=== PATIENT | male | born 1945 | race Caucasian/White ===

== ENCOUNTER 2016-04-12 16:11 | Emergency (ER) | payer MEDICARE, BC ==
--- NOTE | 2016-04-12 16:58 | EKG REPORT ---
SEVERITY:- BORDERLINE ECG - SINUS RHYTHM : Confirmed by: Jolly Chaudhry MD 12-Apr-2016 16:58:09
--- NOTE | 2016-04-12 16:59 | ER Document Report ---
ED Medical Screen (RME) - General Stated Complaint: CHEST PAIN Notes: this afternoon, sudden onset chest pain with diaphoresis. gave 325 mg asa, 2 SL nitro chest pain substernal pressure lasyting 15-20 minutes, resolved with the SL nitro patient has a h/o CAD which resulted in CABG x2, no stents. Last stress test/cath approx 3 years ago PMH: DM, HTN, HLD, former smoker I have greeted and performed a rapid initial assessment of this patient. A comprehensive ED assessment and evaluation of the patient, analysis of test results and completion of the medical decision making process will be conducted by additional ED providers. TRAVEL OUTSIDE OF THE [place] IN LAST 30 DAYS: No - Related Data Allergies/Adverse Reactions: No Known Allergies Allergy (Verified 04/12/16 16:56) Past Medical History - Past Medical History Cardiac Medical History: Reports: Hx Coronary Artery Disease, Hx Hypercholesterolemia, Hx Hypertension Denies: Hx Heart Attack Pulmonary Medical History: Reports: Hx Asthma, Hx COPD, Hx Pneumonia - BABY. Denies: Hx Bronchitis Neurological Medical History: Denies: Hx Cerebrovascular Accident, Hx Seizures Endocrine Medical History: Reports: Hx Diabetes Mellitus Type 2 GI Medical History: Reports: Hx Hiatal Hernia. Denies: Hx Hepatitis, Hx Ulcer Musculoskeltal Medical History: Reports Hx Arthritis Infectious Medical History: Denies: Hx Hepatitis Past Surgical History: Reports: Hx Cardiac Surgery, Hx Cholecystectomy. Denies : Hx Open Heart Surgery, Hx Pacemaker - Immunizations Hx Diphtheria, Pertussis, Tetanus Vaccination: Yes - UNSURE IN LAST 5 YEARS. Physical Exam - Vital signs Vitals: Temp Pulse Resp BP Pulse Ox 97.8 F 57 L 20 137/59 H 100 04/12/16 16:04/12/16 16:04/12/16 16:04/12/16 16:04/12/16 16:27 Course - Vital Signs Vital signs: Temp Pulse Resp BP Pulse Ox 97.8 F 57 L 20 137/59 H 100 04/12/16 16:27 04/12/16 16:27 04/12/16 16:27 04/12/16 16:27 04/12/16 16:27
[2016-04-12 17:32] LABS: ABSOLUTE EOSINOPHILS # (AUTO) 0.1 10^3/uL (0.0-0.6); ABSOLUTE LYMPHOCYTES (AUTO) 1.2 10^3/uL (0.5-4.7); ABSOLUTE MONOCYTES (AUTO) 0.9 10^3/uL (0.1-1.4); ABSOLUTE NEUT (AUTO) 4.9 10^3/uL (1.7-8.2); BASOPHILS % (AUTO) 0.5 % (0-2); HEMATOCRIT 38.5 % (37.9-51.0); HEMOGLOBIN 13.1 g/dL (13.5-17.0); HGB HCT DIFFERENCE 0.8; LYMPHOCYTES % (AUTO) 17.1 % (13-45); MEAN CORPUSCULAR HEMOGLOBIN 28.7 pg (27.0-33.4); MEAN CORPUSCULAR HGB CONC 34.1 g/dL (32.0-36.0); MEAN CORPUSCULAR VOLUME 84 fl (80-97); RED BLOOD COUNT 4.57 10^6/uL (4.35-5.55); RED CELL DISTRIBUTION WIDTH 15.4 % (11.5-14.0); SEGMENTED NEUTROPHILS % (AUTO) 68.4 % (42-78); WHITE BLOOD COUNT 7.1 10^3/uL (4.0-10.5)
[2016-04-12 17:49] LABS: ALANINE AMINOTRANSFERASE 41 U/L (21-72); ALBUMIN 4.4 g/dL (3.5-5.0); ALKALINE PHOSPHATASE 68 U/L (38-126); ANION GAP 11 (5-19); ASPARTATE AMINO TRANSFERASE 31 U/L (17-59); BILIRUBIN,TOTAL 0.7 mg/dL (0.2-1.3); BLOOD UREA NITROGEN 20 mg/dL (7-20); CALCIUM 9.7 mg/dL (8.4-10.2); CARBON DIOXIDE 26 mmol/L (22-30); CHLORIDE 90 mmol/L (98-107); CREATINE KINASE 205 U/L (55-170); CREATININE RESULT 0.87 mg/dL (0.52-1.25); GLUCOSE 95 mg/dL (75-110); POTASSIUM 4.9 mmol/L (3.6-5.0); SODIUM 127.2 mmol/L (137-145); TOTAL PROTEIN 6.7 g/dL (6.3-8.2)
[2016-04-12 18:01] LABS: CREATINE KINASE MB 3.53 ng/mL (<4.55); TROPONIN I < 0.012 ng/mL
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
[2016-04-12 19:50] VITALS: BP 166/89
== END 2016-04-12 21:42 | disposition home or self-care (01) ==
LOC: ER 16:11
DX: R07.89 Other chest pain (principal); E87.1 Hypo-osmolality and hyponatremia; R61 Generalized hyperhidrosis; R00.1 Bradycardia, unspecified; I25.10 Atherosclerotic heart disease of native coronary artery without angina pectoris; I10 Essential (primary) hypertension; J44.9 Chronic obstructive pulmonary disease, unspecified; J45.909 Unspecified asthma, uncomplicated; E11.9 Type 2 diabetes mellitus without complications; Z87.891 Personal history of nicotine dependence
CPT/HCPCS: 36415; 71010; 80053; 82550; 82553; 84484; 85025; 93005; 93010; 99285

== ENCOUNTER → 2017-08-13 | Outpatient (CLI) | payer MEDICARE, BC ==
--- NOTE | 2017-08-13 13:55 | RADIOLOGY REPORT (SQ) ---
EXAM DESCRIPTION: CT HEAD WITHOUT COMPLETED DATE/TIME: 08/13/2017 1:38 pm REASON FOR STUDY: UNSPEC INJURY OF HEAD INITIAL ENCO S09.90XA UNSPECIFIED INJURY OF HEAD, INITIAL E NCOUNTER M25.551 PAIN IN RIGHT HIP S89.91XA UNSPECIFIED INJURY OF RIGHT LOWER LEG, INITIAL ENCO COMPARISON: CT brain 09/26/2015, 03/24/2014 TECHNIQUE: Axial images acquired through the brain without intravenous contrast. Images reviewed wi th bone, brain and subdural windows. Additional sagittal and coronal reconstructions were generated. Images stored on PACS. All CT scanners at this facility use dose modulation, iterative reconstruction, and/or weight based d osing when appropriate to reduce radiation dose to as low as reasonably achievable (ALARA). [facility]: Dose Right [facility]: CareDose [facility]: Dose Right [facility]: Teradose 4D [facility]: [employer] RADIATION DOSE: CT Rad equipment meets quality standard of care and radiation dose reduction techniq ues were employed. CTDIvol: 48.7 mGy. DLP: 980 mGy-cm. mGy. LIMITATIONS: None. FINDINGS: VENTRICLES: Normal size and contour. Benign prominent cisterna magna in the posterior fos sa, an anatomic variant. CEREBRUM: No masses. No hemorrhage. No midline shift. No evidence for acute infarction. Normal gra y/white matter differentiation. No areas of low density in the white matter. CEREBELLUM: No masses. No hemorrhage. No alteration of density. No evidence for acute infarction. EXTRAAXIAL SPACES: No fluid collections. No masses. ORBITS AND GLOBE: No intra- or extraconal masses. Left globe post cataract surgery. CALVARIUM: No fracture. PARANASAL SINUSES: Left maxillary sinus outlet surgery. Mucous membrane thickening in the left maxil justin sinus and bilateral frontal sinuses. Pneumatized right orbital roof, an anatomic variant. SOFT TISSUES: No mass or hematoma. OTHER: Left temporomandibular joint osteoarthritis. IMPRESSION: No acute intracranial findings. Inflammatory change in the paranasal sinuses. EVIDENCE OF ACUTE STROKE: NO. COMMENT: Quality ID # 436: Final reports with documentation of one or more dose reduction techniques (e.g., Automated exposure control, adjustment of the mA and/or kV according to patient size, use of iterative reconstruction technique) TECHNICAL DOCUMENTATION: JOB ID: [id number]- All Rights Reserved Reading location - IP/workstation name: [email or web address]
--- NOTE | 2017-08-13 15:10 | RADIOLOGY REPORT (SQ) ---
EXAM DESCRIPTION: KNEE RIGHT 4 VIEWS COMPLETED DATE/TIME: 08/13/2017 1:30 pm REASON FOR STUDY: UNSPECIFIED INJURY OF RIGHT LOWER LEG, INITIAL ENCOUNTER COMPARISON: None. NUMBER OF VIEWS: Four views right knee. LIMITATIONS: None. FINDINGS: Osteopenic. Joint spaces are relatively maintained on nonweightbearing views. Mild degen erative spurring in the patella. Trace effusion. Vascular calcifications. No fracture appreciated. OTHER: No other significant finding. IMPRESSION: Osteopenia. DJD. Small effusion. TECHNICAL DOCUMENTATION: JOB ID: [id number] Reading location - IP/workstation name: [email or web address]
--- NOTE | 2017-08-13 15:11 | RADIOLOGY REPORT (SQ) ---
EXAM DESCRIPTION: HIP RIGHT AP/LATERAL COMPLETED DATE/TIME: 08/13/2017 1:30 pm REASON FOR STUDY: PAIN IN RIGHT HIP S09.90XA UNSPECIFIED INJURY OF HEAD, INITIAL ENCOUNTER M25.551 PAIN IN RIGHT HIP S89.91XA UNSPECIFIED INJURY OF RIGHT LOWER LEG, INITIAL ENCO COMPARISON: None. NUMBER OF VIEWS: Two views. TECHNIQUE: AP pelvis and additional frog-leg view of the right hip. LIMITATIONS: None. FINDINGS: MINERALIZATION: Normal. RIGHT HIP: No fracture or dislocation. No worrisome bone lesions. LEFT HIP: No fracture or dislocation. No worrisome bone lesions. PUBIS AND ISCHIUM: No fracture. PELVIS: No fracture. SACRUM: No fracture or dislocation. No worrisome bone lesions. LOWER LUMBAR SPINE: Degenerative changes. SOFT TISSUES: No findings. OTHER: No other significant finding. IMPRESSION: No acute fracture. TECHNICAL DOCUMENTATION: JOB ID: [id number] [employer]- All Rights Reserved Reading location - IP/workstation name: [email or web address]
== END ==
LOC: RAD 13:03
PROVIDERS: ATTEND Family Medicine
DX: S09.90XA Unspecified injury of head, initial encounter (principal); S89.91XA Unspecified injury of right lower leg, initial encounter; M25.551 Pain in right hip; W19.XXXA Unspecified fall, initial encounter; M25.461 Effusion, right knee
CPT/HCPCS: 70450

== ENCOUNTER 2018-09-18 13:04 | Inpatient (IN) | payer MEDICARE, BC ==
[2018-09-18 13:17] LABS: ABSOLUTE BASOPHILS # (AUTO) 0.1 10^3/uL (0.0-0.2); ABSOLUTE EOSINOPHILS # (AUTO) 0.1 10^3/uL (0.0-0.6); ABSOLUTE LYMPHOCYTES (AUTO) 1.6 10^3/uL (0.5-4.7); ABSOLUTE MONOCYTES (AUTO) 0.7 10^3/uL (0.1-1.4); ABSOLUTE NEUT (AUTO) 4.3 10^3/uL (1.7-8.2); BASOPHILS % (AUTO) 0.7 % (0-2); EOSINOPHILS % (AUTO) 2.1 % (0-6); HEMATOCRIT 40.4 % (37.9-51.0); HEMOGLOBIN 13.6 g/dL (13.5-17.0); LYMPHOCYTES % (AUTO) 23.7 % (13-45); MEAN CORPUSCULAR HEMOGLOBIN 30.2 pg (27.0-33.4); MEAN CORPUSCULAR HGB CONC 33.7 g/dL (32.0-36.0); MEAN CORPUSCULAR VOLUME 89 fl (80-97); MONOCYTES % (AUTO) 10.4 % (3-13); PLATELET COUNT 254 10^3/uL (150-450); RED BLOOD COUNT 4.51 10^6/uL (4.35-5.55); RED CELL DISTRIBUTION WIDTH 15.1 % (11.5-14.0); SEGMENTED NEUTROPHILS % (AUTO) 63.1 % (42-78); TOTAL CELLS COUNTED % (AUTO) 100 %; WHITE BLOOD COUNT 6.8 10^3/uL (4.0-10.5)
[2018-09-18 13:23] LABS: INTERNATIONAL RATION (INR) 1.04
[2018-09-18 13:24] LABS: PARTIAL THROMBOPLASTIN TIME 23.9 SEC (23.5-35.8)
[2018-09-18 13:27] LABS: PROTHROMBIN TIME 13.6 SEC (11.4-15.4)
--- NOTE | 2018-09-18 13:28 | RADIOLOGY REPORT (SQ) ---
EXAM DESCRIPTION: CTA HEAD COMPLETED DATE/TIME: 09/18/2018 1:17 pm REASON FOR STUDY: left sided facial droop, stroke sx COMPARISON: None. TECHNIQUE: Post IV contrast scanning, thin section axial imaging through the brain to evaluate the a rterial structures. Source and MIP images are saved and reviewed on PACS. Advanced 3D imaging as volume-rendering, MIPs, SSD performed? yes All CT scanners at this facility use dose modulation, iterative reconstruction, and/or weight based d osing when appropriate to reduce radiation dose to as low as reasonably achievable (ALARA). [facility]: Dose Right [facility]: CareDose [facility]: Dose Right [facility]: Teradose 4D [facility]: [employer] CONTRAST TYPE AND DOSE: contrast/concentration: Isovue 350.00 mg/ml; Total Contrast Delivered: 70.0 ml; Total Saline Delivered: 75.0 ml RENAL FUNCTION: Not recorded here LIMITATIONS: None. FINDINGS: TE[place] OF [place]: The anterior, middle, posterior cerebral arteries are all patent. No ev idence of aneurysm or focal stenosis. POSTERIOR CIRCULATION: The distal vertebral arteries are patent as is the basilar artery. No aneurysm . BRAIN: See separate report for CT of the head. Nonenhancing lesion is seen. BONES: Intact as visualized. SINUSES: No fluid or mucosal thickening. OTHER: No other significant finding. IMPRESSION: NO CTA EVIDENCE OF STENOSIS OR ANEURYSM OF THE TE-[place] OF [place]. TECHNICAL DOCUMENTATION: JOB ID: [id number] Quality ID # 436: Final reports with documentation of one or more dose reduction techniques (e.g., Au tomated exposure control, adjustment of the mA and/or kV according to patient size, use of iterative reconstruction technique) 2010 [employer]- All Rights Reserved Reading location - IP/workstation name: [email or web address]
--- NOTE | 2018-09-18 13:32 | RADIOLOGY REPORT (SQ) ---
EXAM DESCRIPTION: CTA NECK COMPLETED DATE/TIME: 09/18/2018 1:17 pm REASON FOR STUDY: left sided facial droop, stroke sx COMPARISON: None. TECHNIQUE: Axial dynamic scanning technique with dynamic contrast enhancement through the extra-aircraft body repairer nial carotid and vertebral arteries. Multiplanar reconstruction. 3-D MIPS and Volume-rendered imag es acquired at the workstation and saved to PACS. Images are reviewed in soft tissue, bone, lung w indows. All CT scanners at this facility use dose modulation, iterative reconstruction, and/or weight based d osing when appropriate to reduce radiation dose to as low as reasonably achievable (ALARA). [facility]: Dose Right [facility]: CareDose [facility]: Dose Right [facility]: Teradose 4D [facility]: [employer] CONTRAST TYPE AND DOSE: 70 mL Omnipaque 350- low osmolar. RENAL FUNCTION: Not recorded here LIMITATIONS: None. FINDINGS: AORTIC ARCH: Normal three-vessel origin. Bilateral subclavian arteries are patent. No d issection. RIGHT CAROTIDS: Patent common, internal and external carotid arteries without suggestion of significa nt stenosis or irregular plaque. No dissection. RIGHT VERTEBRAL: Patent. No dissection. LEFT CAROTIDS: Patent common, internal and external carotid arteries without suggestion of significan t stenosis or irregular plaque. No dissection. LEFT VERTEBRAL: Patent. No dissection. OTHER: No other significant finding. OTHER: 3-D reconstructions confirm findings. IMPRESSION: NORMAL CTA OF THE EXTRA-CRANIAL CAROTID AND VERTEBRAL ARTERIES. COMMENT: Quality ID #[id number]: Measurements of distal internal carotid diameter were used as the denomina tor for stenosis measurement. TECHNICAL DOCUMENTATION: JOB ID: [id number] Quality ID # 436: Final reports with documentation of one or more dose reduction techniques (e.g., Au tomated exposure control, adjustment of the mA and/or kV according to patient size, use of iterative reconstruction technique) 2010 [employer]- All Rights Reserved Reading location - IP/workstation name: [email or web address]
[2018-09-18] MEDS ORDERED: DEXTROSE 50%-WATER 25 GM/50 ML DISP.SYRIN IV ONE ×2 (13:33→13:35)
--- NOTE | 2018-09-18 13:35 | RADIOLOGY REPORT (SQ) ---
EXAM DESCRIPTION: CT HEAD WITHOUT COMPLETED DATE/TIME: 09/18/2018 1:17 pm REASON FOR STUDY: left sided facial droop, stroke sx COMPARISON: 08/13/2017 09/18/2018 TECHNIQUE: Axial images acquired through the brain without intravenous contrast. Images reviewed wi th bone, brain and subdural windows. Additional sagittal and coronal reconstructions were generated. Images stored on PACS. All CT scanners at this facility use dose modulation, iterative reconstruction, and/or weight based d osing when appropriate to reduce radiation dose to as low as reasonably achievable (ALARA). [facility]: Dose Right [facility]: CareDose [facility]: Dose Right [facility]: Teradose 4D [facility]: [employer] RADIATION DOSE: mGy. LIMITATIONS: None. FINDINGS: VENTRICLES: Prominent ventricles secondary to involutional atrophy. CEREBRUM: No masses. No hemorrhage. No midline shift. No evidence for acute infarction. Normal gra y/white matter differentiation. No areas of low density in the white matter. CEREBELLUM: An arachnoid cyst is present. There is no hemorrhage. There is no acute infarction. EXTRAAXIAL SPACES: No fluid collections. No masses. ORBITS AND GLOBE: No intra- or extraconal masses. Normal contour of globe without masses. CALVARIUM: No fracture. PARANASAL SINUSES: No fluid or mucosal thickening. SOFT TISSUES: No mass or hematoma. OTHER: No other significant finding. IMPRESSION: Mild involutional changes. No acute intracranial imaging finding. Posterior fossa arac hnoid cyst. EVIDENCE OF ACUTE STROKE: NO. COMMENT: Quality ID # 436: Final reports with documentation of one or more dose reduction techniques (e.g., Automated exposure control, adjustment of the mA and/or kV according to patient size, use of iterative reconstruction technique) TECHNICAL DOCUMENTATION: JOB ID: [id number] [employer]- All Rights Reserved Reading location - IP/workstation name: [email or web address]
[2018-09-18] MEDS ORDERED: ALTEPLASE INJ 100 MG VIAL ONE (13:41)
[2018-09-18 13:46] LABS: ALBUMIN 4.3 g/dL (3.5-5.0); ALKALINE PHOSPHATASE 68 U/L (38-126); ANION GAP 10 (5-19); ASPARTATE AMINO TRANSFERASE 24 U/L (17-59); BILIRUBIN,DIRECT 0.2 mg/dL (0.0-0.4); BILIRUBIN,TOTAL 0.4 mg/dL (0.2-1.3); BLOOD UREA NITROGEN 18 mg/dL (7-20); CALCIUM 9.6 mg/dL (8.4-10.2); CARBON DIOXIDE 25 mmol/L (22-30); CHLORIDE 104 mmol/L (98-107); CREATINE KINASE 160 U/L (55-170); GLUCOSE 101 mg/dL (75-110); POTASSIUM 4.5 mmol/L (3.6-5.0); TOTAL PROTEIN 6.9 g/dL (6.3-8.2)
--- NOTE | 2018-09-18 13:54 | RADIOLOGY REPORT (SQ) ---
EXAM DESCRIPTION: CHEST SINGLE VIEW COMPLETED DATE/TIME: 09/18/2018 1:43 pm REASON FOR STUDY: left sided facial droop, stroke sx COMPARISON: 04/12/2016, 12/01/2015 EXAM PARAMETERS: NUMBER OF VIEWS: One view. TECHNIQUE: Single frontal radiographic view of the chest acquired. RADIATION DOSE: NA LIMITATIONS: None. FINDINGS: LUNGS AND PLEURA: Minimal opacity projected over the right heart may represent atelectasis infiltrate. Recommend follow-up PA and lateral for more definitive evaluation. MEDIASTINUM AND HILAR STRUCTURES: No masses. Contour normal. HEART AND VASCULAR STRUCTURES: Heart normal in size. Normal vasculature. BONES: No acute findings. HARDWARE: None in the chest. OTHER: No other significant finding. IMPRESSION: Minimal density medial aspect the right base. Possibly atelectasis or infiltrate. Mahad mmend PA and lateral when the patient is clinically stable TECHNICAL DOCUMENTATION: JOB ID: [id number] [employer]- All Rights Reserved Reading location - IP/workstation name: [email or web address]
[2018-09-18 13:59] LABS: TROPONIN I < 0.012 ng/mL
[2018-09-18] MEDS ORDERED: NICARDIPINE HCL RTU, ISO-OS 20 MG/200 ML RTUINJ IV ONE (14:06)
--- NOTE | 2018-09-18 14:17 | ER Document Report ---
ED Neuro Symptoms/Deficit - General Stated Complaint: POSSIBLE STROKE Time Seen by Provider: 09/18/18 13:04 Primary Care Provider: IVONNE CAMARA MD [Primary Care Provider] - Follow up as needed Notes: 72-year-old male brought in by EMS for strokelike symptoms. Initially reported last known normal time of 9 AM however then presented to the emergency department and said she is my first noticed strokelike symptoms at 10 AM. After further discussion they agreed on the last known normal time of 9:45 AM. Patient did have a trip and fall this morning where he did not strike his head at 9 AM however he was not wearing his brace on his left foot that he normally uses for dropfoot. After he was given his brace and his walker he was able to walk to the bathroom using his walker and he and his both state that at that point he had no slurred speech, no upper extremity weakness and no difficulty walking once his assistive devices were back in place. states that when he came out of the bathroom at 10 AM he had very slight left-sided facial droop but did not develop any extremity weakness until an hour or 2 later. Patient now has left-sided facial droop, left arm and left leg weakness and some difficulty with slurring his speech. Denies prior history of stroke, head injury, blood thinners. TRAVEL OUTSIDE OF THE [place] IN LAST 30 DAYS: No - Related Data Allergies/Adverse Reactions: No Known Allergies Allergy (Verified 04/12/16 16:56) Past Medical History - General Information source: Patient, Relative - Social History Smoking Status: Unknown if Ever Smoked Frequency of alcohol use: Occasional Drug Abuse: None Lives with: Spouse/Significant other Family History: None - Past Medical History Cardiac Medical History: Reports: Hx Coronary Artery Disease, Hx Hypercholesterolemia, Hx Hypertension Denies: Hx Heart Attack Pulmonary Medical History: Reports: Hx Asthma, Hx COPD, Hx Pneumonia - BABY. Denies: Hx Bronchitis Neurological Medical History: Denies: Hx Cerebrovascular Accident, Hx Seizures Endocrine Medical History: Reports: Hx Diabetes Mellitus Type 2 Renal/ Medical History: Denies: Hx Peritoneal Dialysis GI Medical History: Reports: Hx Hiatal Hernia. Denies: Hx Hepatitis, Hx Ulcer Musculoskeletal Medical History: Reports Hx Arthritis Infectious Medical History: Denies: Hx Hepatitis Past Surgical History: Reports: Hx Cardiac Surgery, Hx Cholecystectomy. Denies: Hx Open Heart Surgery, Hx Pacemaker - Immunizations Hx Diphtheria, Pertussis, Tetanus Vaccination: Yes - UNSURE IN LAST 5 YEARS. Review of Systems - Review of Systems Constitutional: No symptoms reported EENT: See HPI Cardiovascular: No symptoms reported Musculoskeletal: See HPI Neurological/Psychological: See HPI -: Yes All other systems reviewed and negative Physical Exam - Vital signs Vitals: Pulse Ox 94 09/18/18 13:05 - Notes Notes: GENERAL: Alert, interacts well. HEAD: Normocephalic, atraumatic. Left-sided facial droop. Does not resolve with smile. EYES: Pupils equal, round and reactive to light, extraocular movements intact. ENT: Oral mucosa moist, tongue midline. NECK: Full range of motion, supple, trachea midline. LUNGS: Clear to auscultation bilaterally, no wheezes, rales or rhonchi, no respiratory distress. HEART: Regular rate and rhythm, no murmurs, gallops, rubs. ABDOMEN: Soft, nontender, nondistended, bowel sounds present in all 4 quadrants. EXTREMITIES: Moves all 4 extremities spontaneously, 3-5 muscle strength in the l eft upper extremity, 2 out of 5 muscle strength in the left lower extremity, brace in place to treat pre-existing foot drop. no edema, radial and dorsalis pedis pulses 2/4 bilaterally. No cyanosis. NEUROLOGICAL: Alert and oriented x3, normal speech, left-sided facial droop, small minute ataxia with [id number] testing on the left arm, total NIH is 9, please see nursing notes for exact NIH scale. Biceps and patellar DTRs 2+ bilaterally. PSYCH: Normal mood, normal affect. SKIN: Warm, Dry, normal turgor, no rashes or lesions noted. Course - Re-evaluation Re-evalutation: 09/18/18 15:11 CBC unremarkable, coags normal, CMP unremarkable, CT scan of the head does not show any sign of acute bleed, immediately followed by CTA of the head and neck to assess for large vessel occlusion. There is no large vessel occlusion. est x-ray shows minimal density at the medial aspect of the right base, possibly atelectasis or infiltrate. Patient has no clinical signs or symptoms of pneumonia. Patient is a candidate for TPA based off of last known normal at 9:45 AM. I did have an extensive discussion with the who then discussed with her children and her friend whether or not they would wish to receive TPA. He also discussed the importance of having an exact last known normal time. is adamant that last known normal was approximately 945 and patient confirms this. After further discussion and phone calls has decided that they would like to give TPA. She is aware of the approximately 8% risk of intracranial hemorrhage and worsening after receiving TPA. As we are about to give TPA the patient's systolic blood pressure became 183 systolic, I have started a drip of nicardipine prophylactically to be able to control his blood pressure. He responded well to this. I am now attempting to call the spitalist to discuss admission to this hospital. 09/18/18 15:[address] Bartlett and then Rosa Elena Bedolla [facility], accepts the patient to the intensive care unit. Patient was rechecked, has regained some strength in his left arm and left leg, otherwise no changes. When the patient's blood pressure was checked manually it is in the 130 systolic, patient has been titrated down to nicardipine 1 mg on the pump. We will continue to check manual pressures. 09/18/18 16:00 Please see paper charting for TPA inclusion exclusion criteria as well as NIH. 09/18/18 16:[address] Camara who states that all post TPA patients are admitted by the hospitalist. I discussed this with Rosa Elena Bedolla who agreed to admit the patient. - Vital Signs Vital signs: Temp Pulse Resp BP Pulse Ox 16 166/72 H 91 L 09/18/18 13:20 09/18/18 13:20 09/18/18 13:20 - Laboratory Result Diagrams: 09/18/18 13:05 09/18/18 13:05 Laboratory results interpreted by me: 09/18/18 13:05 RDW 15.1 H Critical Care Note - Critical Care Note Total time excluding time spent on procedures (mins): 80 Discharge - Discharge Clinical Impression: CVA (cerebral vascular accident) Qualifiers: CVA mechanism: unspecified Qualified Code(s): I63.9 - Cerebral infarction, unspecified Condition: Critical Disposition: ADMITTED INPATIENT Admitting Provider: Tri (Hospitalist) - Rosa Elena Bedolla Unit Admitted: ICU Referrals: IVONNE CAMARA MD [Primary Care Provider] - Follow up as needed
--- NOTE | 2018-09-18 14:33 | EKG REPORT ---
SEVERITY:- NORMAL ECG - SINUS RHYTHM : Confirmed by: Jolly Chaudhry MD 18-Sep-2018 14:32:49
[2018-09-18] MEDS ORDERED: NICARDIPINE HCL RTU, ISO-OS 20 MG/200 ML RTUINJ IV PRN (16:33)
[2018-09-18] MEDS ORDERED: ACETAMINOPHEN 650 MG SUPP.RECT PR PRN (16:33)
[2018-09-18] MEDS ORDERED: ACETAMINOPHEN 325 MG TABLET PO PRN (16:33)
[2018-09-18] MEDS ORDERED: DOCUSATE SODIUM 100 MG CAPSULE PO PRN (16:36)
[2018-09-18] MEDS ORDERED: TRAMADOL HCL 50 MG TABLET PO PRN (16:36)
[2018-09-18] MEDS ORDERED: MAGNESIUM HYDROXIDE SUSP 30 ML UDCUP PO PRN (16:36)
[2018-09-18] MEDS ORDERED: ONDANSETRON HCL INJ/PF 4 MG/2 ML SDV IV PRN (16:36)
[2018-09-18] MEDS ORDERED: GLUCAGON,HUMAN RECOMB 1 MG INJ IM PRN (17:16)
[2018-09-18] MEDS ORDERED: DEXTROSE 40% GEL 15 GM TUBE PO PRN ×2 (17:16)
[2018-09-18] MEDS ORDERED: DEXTROSE 50%-WATER 25 GM/50 ML DISP.SYRIN IV PRN ×2 (17:16)
--- NOTE | 2018-09-18 17:32 | PDOC H&P ---
History of Present Illness Admission Date/PCP: 09/18/18 16:20 IVONNE CAMARA MD Patient complains of: left side weakness History of Present Illness: ROMERO KELLEY is a 72 year old male with a past medical history significant for hypertension, hyperlipidemia, DM 2, BPH, mild PTSD/anxiety, macular degeneration, obesity and SERENA who presented to the emergency department this morning with multiple falls and sudden onset left-sided weakness and facial droop. The patient did receive TPA. Evaluation in the emergency department revealed elevated blood pressures (1 60s/90s), Unremarkable laboratory evaluation, chest x-ray demonstrating a right basilar infiltrate, NSR on EKG, head CT negative for acute CVA, head and neck CTA were benign. He is referred to the hospitalist service for admission and management of acute ischemic CVA post TPA. Past Medical History Cardiac Medical History: Reports: Coronary Artery Disease, Hyperlipidema, Hypertension Denies: Myocardial Infarction Pulmonary Medical History: Reports: Asthma, Chronic Obstructive Pulmonary Disease (COPD), Sleep Apnea Denies: Bronchitis EENT Medical History: Reports: Other - macular degeneration Neurological Medical History: Denies: Ischemic CVA, Seizures Endocrine Medical History: Reports: Diabetes Mellitus Type 2, Obesity Malignancy Medical History: Reports: None GI Medical History: Reports: Hiatal Hernia Denies: Hepatitis Musculoskeltal Medical History: Reports: Arthritis Psychiatric Medical History: Reports: General Anxiety Disorder, Post Traumatic Stress Disorder Hematology: Denies: Anemia, Sickle Cell Disease Past Surgical History Past Surgical History: Reports: Cholecystectomy, Coronary Artery Bypass Graft, Orthopedic Surgery - left wrist, left foot Denies: Pacemaker Social History Information Source: Patient, Relative Lives with: Spouse/Significant other Smoking Status: Unknown if Ever Smoked Frequency of Alcohol Use: None Hx Recreational Drug Use: No Drugs: None Hx Prescription Drug Abuse: No - Advance Directive Resuscitation Status: Full Code Surrogate healthcare decision maker:: Patient's ; iSlva Kelley Family History Family History: Reviewed & Not Pertinent Parental Family History Reviewed: Yes Children Family History Reviewed: Yes Sibling(s) Family History Reviewed.: Yes Medication/Allergy Home Medications: Aspirin 81 mg PO DAILY 09/26/15 Clonazepam [Klonopin] 0.5 mg PO QHS 09/26/15 Donepezil HCl 10 mg PO QHS 09/26/15 Escitalopram Oxalate [Lexapro] 40 mg PO DAILY 09/26/15 Hydrochlorothiazide 25 mg PO DAILY 09/26/15 Memantine HCl [Namenda Xr] 28 mg PO DAILY 09/26/15 Omeprazole 20 mg PO DAILY 09/26/15 Oxcarbazepine [Trileptal] 300 mg PO DAILY 09/26/15 Pravastatin Sodium 40 mg PO QHS 09/26/15 Solifenacin Succinate [Vesicare] 1 tab PO HSP PRN 09/26/15 Telmisartan 1 tab PO DAILY 09/26/15 Linagliptin [Tradjenta] 5 mg PO DAILY #30 tablet 10/01/15 Metoprolol Succinate [Toprol Xl 50 mg Tab.sr] 75 mg PO DAILY #30 tab.sr.24h 10/01/15 Celecoxib [Celebrex 200 mg Capsule] 200 mg PO Q12 01/17/16 Cyclobenzaprine HCl 10 mg PO ASDIR PRN 01/17/16 Hydralazine HCl [Apresoline 50 mg Tablet] 50 mg PO BID 01/17/16 Metformin HCl 500 mg PO BID 01/17/16 Oxycodone HCl/Acetaminophen [Percocet 5-325 mg Tablet] 1 tab PO Q6 #30 tablet 01/23/16 Allergies/Adverse Reactions: No Known Allergies Allergy (Verified 04/12/16 16:56) Review of Systems Constitutional: PRESENT: fatigue. ABSENT: chills, fever(s), headache(s), weight gain, weight loss Eyes: ABSENT: visual disturbances Ears: ABSENT: hearing changes Cardiovascular: ABSENT: chest pain, dyspnea on exertion, edema, orthropnea, palpitations Respiratory: ABSENT: cough, hemoptysis Gastrointestinal: ABSENT: abdominal pain, constipation, diarrhea, hematemesis, hematochezia, nausea, vomiting Genitourinary: ABSENT: dysuria, hematuria Musculoskeletal: ABSENT: joint swelling Integumentary: ABSENT: rash, wounds Neurological: PRESENT: as per HPI, abnormal gait, abnormal movements, abnormal speech, lack of coordination, weakness. ABSENT: confusion, dizziness, syncope Psychiatric: ABSENT: anxiety, depression, homidical ideation, suicidal ideation Endocrine: ABSENT: cold intolerance, heat intolerance, polydipsia, polyuria Hematologic/Lymphatic: ABSENT: easy bleeding, easy bruising Physical Exam Vital Signs: Temp Pulse Resp BP Pulse Ox 53 L 14 162/80 H 94 09/18/18 16:56 09/18/18 16:56 09/18/18 16:56 09/18/18 16:56 Intake & Output 09/17/18 09/18/18 09/19/18 06:59 06:59 06:59 Intake Total 33 Balance 33 Weight 110.9 kg General appearance: PRESENT: no acute distress, cooperative, obese, well- developed, well-nourished Head exam: PRESENT: atraumatic, normocephalic Eye exam: PRESENT: conjunctiva pink, EOMI, PERRLA. ABSENT: scleral icterus Ear exam: PRESENT: normal external ear exam Mouth exam: PRESENT: moist, tongue midline Neck exam: ABSENT: carotid bruit, JVD, lymphadenopathy, thyromegaly Respiratory exam: PRESENT: clear to auscultation german, symmetrical, unlabored. ABSENT: rales, rhonchi, wheezes Cardiovascular exam: PRESENT: RRR, +S1, +S2. ABSENT: diastolic murmur, rubs, systolic murmur Pulses: PRESENT: normal dorsalis pedis pul Vascular exam: PRESENT: normal capillary refill GI/Abdominal exam: PRESENT: normal bowel sounds, soft. ABSENT: distended, guarding, mass, organolmegaly, rebound, tenderness Rectal exam: PRESENT: deferred Extremities exam: PRESENT: full ROM. ABSENT: calf tenderness, clubbing, pedal edema Neurological exam: PRESENT: alert, awake, oriented to person, oriented to place, oriented to time, oriented to situation, CN II-XII grossly intact, other - Slight left-sided droop, left drapery rod assembler 3/5, right 5/5, left leg lift 1/5, right leg left 5/5. ABSENT: motor sensory deficit Psychiatric exam: PRESENT: appropriate affect, normal mood. ABSENT: homicidal ideation, suicidal ideation Skin exam: PRESENT: dry, intact, warm. ABSENT: cyanosis, rash Results Laboratory Results: 09/18/18 13:05 09/18/18 13:05 09/18/18 09/18/18 13:05 13:05 WBC 6.8 RBC 4.51 Hgb 13.6 Hct 40.4 MCV 89 MCH 30.2 MCHC 33.7 RDW 15.1 H Plt Count 254 Seg Neutrophils % 63.1 Lymphocytes % 23.7 Monocytes % 10.4 Eosinophils % 2.1 Basophils % 0.7 Absolute Neutrophils 4.3 Absolute Lymphocytes 1.6 Absolute Monocytes 0.7 Absolute Eosinophils 0.1 Absolute Basophils 0.1 Sodium 139.3 Potassium 4.5 Chloride 104 Carbon Dioxide 25 Anion Gap 10 BUN 18 Creatinine 0.81 Est GFR ( Amer) > 60 Est GFR (Non-Af Amer) > 60 Glucose 101 Calcium 9.6 Total Bilirubin 0.4 AST 24 Alkaline Phosphatase 68 Total Protein 6.9 Albumin 4.3 09/18/18 09/18/18 13:05 13:05 Creatine Kinase 160 CK-MB (CK-2) 6.70 H Troponin I < 0.012 Impressions: Chest X-Ray 09/18/18 13:05 IMPRESSION: Minimal density medial aspect the right base. Possibly atelectasis or infiltrate. Recommend PA and lateral when the patient is clinically stable Head CT 09/18/18 13:05 IMPRESSION: Mild involutional changes. No acute intracranial imaging finding. Posterior fossa arachnoid cyst. EVIDENCE OF ACUTE STROKE: NO. Head CTA 09/18/18 13:05 IMPRESSION: NO CTA EVIDENCE OF STENOSIS OR ANEURYSM OF THE [place]. Neck CTA 09/18/18 13:05 IMPRESSION: NORMAL CTA OF THE EXTRA-CRANIAL CAROTID AND VERTEBRAL ARTERIES. Assessment and Plan - Diagnosis (1) CVA (cerebral vascular accident) Qualifiers: CVA mechanism: unspecified Qualified Code(s): I63.9 - Cerebral infarction, unspecified Is this a current diagnosis for this admission?: Yes Plan: Status post TPA. Patient with continued left-sided deficits. Imaging so far unremarkable. Patient is admitted to ICU. Permissive hypertension. Tight glucose control. PT/OT/ST consultations Follow-up head MRI and echocardiogram tomorrow. Discharge planning is consulted. (2) Hypertension Qualifiers: Hypertension type: essential hypertension Qualified Code(s): I10 - Essenti al (primary) hypertension Is this a current diagnosis for this admission?: Yes Plan: The patient presents with ischemic CVA, post TPA. Per patient's his systolic blood pressure averages 150s. Patient was started on a Cardene drip for systolic of 180; have discussed with nursing parameters to allow for permissive hypertension. Cardiac diet. (3) DM type 2 (diabetes mellitus, type 2) Qualifiers: Diabetes mellitus termite inspector insulin use: without snf use Is this a current diagnosis for this admission?: Yes Plan: Patient oral medications placed on hold. Consistent carb/cardiac diet. Accu-Cheks with sliding scale insulin Hypokalemia protocol Check A1c with a.m. lab work (4) Hyperlipidemia Is this a current diagnosis for this admission?: Yes Plan: Cardiac diet. Full dose statin therapy. Check lipid panel with a.m. lab work. - Time Time Spent with patient: 35 or more minutes Anticipated discharge: Home with Homehealth Within: within 72 hours - Inpatient Certification Based on my medical assessment, after consideration of the patient's comorb idities, presenting symptoms, or acuity I expect that the services needed warrant INPATIENT care.: Yes I certify that my determination is in accordance with my understanding of Medicare's requirements for reasonable and necessary INPATIENT services [42 CFR 412.3e].: Yes Medical Necessity: Need Close Monitoring Due to Risk of Patient Decompensation, Need For Continuous Telemetry Monitoring, Risk of Complication if Not Cared For in Hospital
[2018-09-18] MEDS: INSULIN LISPRO 100 UNIT/ML 3 ML VIAL SUBCUT SCH (22:07)
[2018-09-18] MEDS: ATORVASTATIN CALCIUM 80 MG TABLET PO SCH (22:07)
[2018-09-18] MEDS: SIMVASTATIN 40 MG TABLET PO SCH (22:08)
[2018-09-18] MEDS: FAMOTIDINE 20 MG TABLET PO SCH (22:08)
[2018-09-19] MEDS ORDERED: SCOPOLAMINE HYDROBROMIDE 1.5 MG PATCH.TD72 TD SCH (03:30)
[2018-09-19 05:06] LABS: HEMATOCRIT 40.3 % (37.9-51.0); HEMOGLOBIN 13.7 g/dL (13.5-17.0); MEAN CORPUSCULAR HGB CONC 33.9 g/dL (32.0-36.0); MEAN CORPUSCULAR VOLUME 89 fl (80-97); PLATELET COUNT 214 10^3/uL (150-450); RED BLOOD COUNT 4.55 10^6/uL (4.35-5.55); RED CELL DISTRIBUTION WIDTH 15.2 % (11.5-14.0); WHITE BLOOD COUNT 8.9 10^3/uL (4.0-10.5)
[2018-09-19 05:26] LABS: ALBUMIN 4.1 g/dL (3.5-5.0); ALKALINE PHOSPHATASE 77 U/L (38-126); ANION GAP 7 (5-19); ASPARTATE AMINO TRANSFERASE 27 U/L (17-59); BILIRUBIN,DIRECT 0.2 mg/dL (0.0-0.4); BILIRUBIN,TOTAL 0.8 mg/dL (0.2-1.3); BLOOD UREA NITROGEN 16 mg/dL (7-20); CALCIUM 9.3 mg/dL (8.4-10.2); CARBON DIOXIDE 24 mmol/L (22-30); CHLORIDE 104 mmol/L (98-107); CHOLESTEROL 163.46 mg/dL (0-200); GLUCOSE 109 mg/dL (75-110); POTASSIUM 4.4 mmol/L (3.6-5.0); TOTAL PROTEIN 6.8 g/dL (6.3-8.2); TRIGLYCERIDES 152 mg/dL (<150)
[2018-09-19 05:38] LABS: DIRECT LDL 120 mg/dL (<100); VLDL CHOLESTEROL 30.4 mg/dL (10-31)
[2018-09-19] MEDS: INSULIN LISPRO 100 UNIT/ML 3 ML VIAL SUBCUT SCH ×4 (08:08→22:43)
[2018-09-19] MEDS: ASPIRIN 81 MG TABLET, ENT COATED PO SCH (09:13)
[2018-09-19] MEDS: FAMOTIDINE 20 MG TABLET PO SCH ×2 (09:13→21:26)
--- NOTE | 2018-09-19 13:01 | PDOC PROGRESS REPORT ---
Subjective Progress Note for:: 09/19/18 Subjective:: This is 72 years old male patient with past medical history of coronary artery disease, hypertension, hyperlipidemia, diabetes mellitus, obesity and COPD, brought by EMS after he developed stroke symptoms evidence it by facial droop on the left side. Since his presentation is within the therapeutic window patient was given TPA and admitted to the ICU. Morning patient seen while he is resting in bed. He is awake alert he speaks in full sentences and there is no slurring. The patient has a slight left facial droop. Reason For Visit: ISCHEMIC CVA S/P TPA Physical Exam Vital Signs: Temp Pulse Resp BP Pulse Ox 99.1 F 60 17 148/72 H 93 09/19/18 11:00 09/19/18 11:00 09/19/18 11:00 09/19/18 11:00 09/19/18 11:00 Intake & Output 09/18/18 09/19/18 09/20/18 06:59 06:59 06:59 Intake Total 104 22 Output Total 980 250 Balance -876 -228 Weight 108.5 kg General appearance: PRESENT: no acute distress Head exam: PRESENT: atraumatic Eye exam: PRESENT: conjunctiva pink Neck exam: ABSENT: carotid bruit, JVD, lymphadenopathy, thyromegaly Respiratory exam: PRESENT: clear to auscultation german. ABSENT: rales, rhonchi, wheezes Cardiovascular exam: PRESENT: RRR. ABSENT: diastolic murmur, rubs, systolic murmur GI/Abdominal exam: PRESENT: normal bowel sounds, soft. ABSENT: distended, guarding, mass, organolmegaly, rebound, tenderness Neurological exam: PRESENT: alert, awake. ABSENT: motor sensory deficit Results Laboratory Results: 09/19/18 04:45 09/19/18 04:45 09/18/18 09/18/18 09/19/18 13:05 13:05 04:45 WBC 6.8 8.9 RBC 4.51 4.55 Hgb 13.6 13.7 Hct 40.4 40.3 MCV 89 89 MCH 30.2 30.0 MCHC 33.7 33.9 RDW 15.1 H 15.2 H Plt Count 254 214 Seg Neutrophils % 63.1 Lymphocytes % 23.7 Monocytes % 10.4 Eosinophils % 2.1 Basophils % 0.7 Absolute Neutrophils 4.3 Absolute Lymphocytes 1.6 Absolute Monocytes 0.7 Absolute Eosinophils 0.1 Absolute Basophils 0.1 Sodium 139.3 Potassium 4.5 Chloride 104 Carbon Dioxide 25 Anion Gap 10 BUN 18 Creatinine 0.81 Est GFR ( Amer) > 60 Est GFR (Non-Af Amer) > 60 Glucose 101 Calcium 9.6 Total Bilirubin 0.4 AST 24 Alkaline Phosphatase 68 Total Protein 6.9 Albumin 4.3 Triglycerides Cholesterol LDL Cholesterol Direct VLDL Cholesterol HDL Cholesterol 09/19/18 04:45 WBC RBC Hgb Hct MCV MCH MCHC RDW Plt Count Seg Neutrophils % Lymphocytes % Monocytes % Eosinophils % Basophils % Absolute Neutrophils Absolute Lymphocytes Absolute Monocytes Absolute Eosinophils Absolute Basophils Sodium 135.4 L Potassium 4.4 Chloride 104 Carbon Dioxide 24 Anion Gap 7 BUN 16 Creatinine 0.70 Est GFR ( Amer) > 60 Est GFR (Non-Af Amer) > 60 Glucose 109 Calcium 9.3 Total Bilirubin 0.8 AST 27 Alkaline Phosphatase 77 Total Protein 6.8 Albumin 4.1 Triglycerides 152 H Cholesterol 163.46 LDL Cholesterol Direct 120 H VLDL Cholesterol 30.4 HDL Cholesterol 34 L 09/18/18 09/18/18 13:05 13:05 Creatine Kinase 160 CK-MB (CK-2) 6.70 H Troponin I < 0.012 Impressions: Chest X-Ray 09/18/18 13:05 IMPRESSION: Minimal density medial aspect the right base. Possibly atelectasis or infiltrate. Recommend PA and lateral when the patient is clinically stable Head CT 09/18/18 13:05 IMPRESSION: Mild involutional changes. No acute intracranial imaging finding. Posterior fossa arachnoid cyst. EVIDENCE OF ACUTE STROKE: NO. Head CTA 09/18/18 13:05 IMPRESSION: NO CTA EVIDENCE OF STENOSIS OR ANEURYSM OF [place]. Neck CTA 09/18/18 13:05 IMPRESSION: NORMAL CTA OF THE EXTRA-CRANIAL CAROTID AND VERTEBRAL ARTERIES. Assessment and Plan - Diagnosis (1) Acute ischemic stroke Is this a current diagnosis for this admission?: Yes Plan: Patient is status post TPA administration. Patient is being managed as post TPA protocol. His blood pressure is relatively controlled. (2) Coronary artery disease Is this a current diagnosis for this admission?: Yes Plan: No anginal symptoms (3) COPD (chronic obstructive pulmonary disease) Qualifiers: Emphysema type: unspecified Is this a current diagnosis for this admission?: Yes Plan: He is saturating well. (4) Type 2 diabetes mellitus Is this a current diagnosis for this admission?: Yes Plan: Continue his home medication and put him on sliding scale.
--- NOTE | 2018-09-19 14:00 | RADIOLOGY REPORT (SQ) ---
EXAM DESCRIPTION: MRI HEAD WITHOUT COMPLETED DATE/TIME: 09/19/2018 1:40 pm REASON FOR STUDY: ischemic stroke COMPARISON: None. TECHNIQUE: Multiplanar imaging includes non-contrasted T1, T2, FLAIR, and diffusion with ADC map seq uences. Images stored on PACS. LIMITATIONS: Motion artifact. FINDINGS: ANATOMY: No anomalies. Normal vascular flow voids. Pituitary fossa normal. CSF SPACES: Atrophy induced prominence of ventricles and CSF spaces. The arachnoid cyst in the poste rior fossa. CEREBRUM: High signal intensity lesions scattered throughout the white matter on FLAIR imaging with d istribution suggesting micro-vascular ischemic changes. No evidence of hemorrhage, mass, or extraaxi al fluid collection. POSTERIOR FOSSA: No signal alteration. No hemorrhage. No edema, masses or mass effect. Internal tao tory canals, cerebello-pontine angles, mastoids normal. DIFFUSION IMAGING: Restricted diffusion in the right wright radiata. ORBITS: No masses. Globes normal. PARANASAL SINUSES: No fluid levels. Mucosa normal. OTHER: No other significant finding. IMPRESSION: ATROPHY AND CHRONIC MICRO-VASCULAR ISCHEMIC CHANGES. RESTRICTED DIFFUSION ON THE RIGHT SIDE IN THE REGION OF THE WRIGHT RADIATA. EVIDENCE OF ACUTE STROKE: YES. RIGHT MCA. COMMENT: Pertinent findings on the imaging study reported as a CRITICAL RESULT to THE ICU NURSE at1 3:53 on 09/19/2018. Category of Critical Result: Acute stroke. TECHNICAL DOCUMENTATION: JOB ID: [id number] [employer]- All Rights Reserved Reading location - IP/workstation name: [email or web address]
--- NOTE | 2018-09-19 14:40 | RADIOLOGY REPORT (SQ) ---
EXAM DESCRIPTION: CHEST SINGLE VIEW COMPLETED DATE/TIME: 09/19/2018 2:26 pm REASON FOR STUDY: Possible Aspiration COMPARISON: Prior not available due to PACs failure. EXAM PARAMETERS: NUMBER OF VIEWS: One view. TECHNIQUE: Single frontal radiographic view of the chest acquired. RADIATION DOSE: NA LIMITATIONS: None. FINDINGS: LUNGS AND PLEURA: No opacities, masses or pneumothorax. No pleural effusion. MEDIASTINUM AND HILAR STRUCTURES: No masses. Contour normal. HEART AND VASCULAR STRUCTURES: Cardiomegaly. BONES: No acute findings. HARDWARE: Sternotomy wires. OTHER: No other significant finding. IMPRESSION: CARDIOMEGALY. NO APPARENT ACUTE RADIOGRAPHIC FINDING IN THE CHEST. TECHNICAL DOCUMENTATION: JOB ID: [id number] [email or web address]- All Rights Reserved Reading location - IP/workstation name: [email or web address]
[2018-09-19 16:36] LABS: ABSOLUTE BASOPHILS # (AUTO) 0.1 10^3/uL (0.0-0.2); ABSOLUTE EOSINOPHILS # (AUTO) 0.1 10^3/uL (0.0-0.6); ABSOLUTE LYMPHOCYTES (AUTO) 1.4 10^3/uL (0.5-4.7); ABSOLUTE MONOCYTES (AUTO) 0.7 10^3/uL (0.1-1.4); ABSOLUTE NEUT (AUTO) 5.5 10^3/uL (1.7-8.2); BASOPHILS % (AUTO) 0.9 % (0-2); EOSINOPHILS % (AUTO) 1.8 % (0-6); HEMATOCRIT 41.4 % (37.9-51.0); HEMOGLOBIN 14.1 g/dL (13.5-17.0); LYMPHOCYTES % (AUTO) 17.5 % (13-45); MEAN CORPUSCULAR HEMOGLOBIN 30.2 pg (27.0-33.4); MEAN CORPUSCULAR HGB CONC 34.1 g/dL (32.0-36.0); MEAN CORPUSCULAR VOLUME 89 fl (80-97); PLATELET COUNT 235 10^3/uL (150-450); RED BLOOD COUNT 4.67 10^6/uL (4.35-5.55); RED CELL DISTRIBUTION WIDTH 14.9 % (11.5-14.0); SEGMENTED NEUTROPHILS % (AUTO) 70.8 % (42-78); TOTAL CELLS COUNTED % (AUTO) 100 %; WHITE BLOOD COUNT 7.7 10^3/uL (4.0-10.5)
[2018-09-19] MEDS ORDERED: NORMAL SALINE 500 ML IV ONE (21:15)
[2018-09-19] MEDS: CLONAZEPAM 1 MG TABLET PO SCH (21:25)
[2018-09-19] MEDS: SIMVASTATIN 40 MG TABLET PO SCH (21:25)
[2018-09-19] MEDS: HYDRALAZINE HCL 50 MG TABLET PO SCH (21:26)
[2018-09-19] MEDS: OXCARBAZEPINE 150 MG TABLET PO SCH (21:26)
[2018-09-19] MEDS: ATORVASTATIN CALCIUM 80 MG TABLET PO SCH (21:28)
[2018-09-19] MEDS ORDERED: (PENDING PHARMACY ID) (Memantine Hcl/Donepezil Hcl [Namzaric 28 Mg-10 Mg Capsule] 1 CAP) PO SCH (22:00)
[2018-09-19] MEDS ORDERED: (PENDING PHARMACY ID) (Clonazepam [Klonopin] 0.5 MG) PO SCH (22:00)
[2018-09-19] MEDS ORDERED: (PENDING PHARMACY ID) (Oxcarbazepine [Trileptal] 600 MG) PO SCH (22:00)
[2018-09-20] MEDS: INSULIN LISPRO 100 UNIT/ML 3 ML VIAL SUBCUT SCH ×4 (07:37→22:29)
--- NOTE | 2018-09-20 08:40 | RADIOLOGY REPORT (SQ) ---
EXAM DESCRIPTION: CHEST SINGLE VIEW COMPLETED DATE/TIME: 09/20/2018 8:20 am REASON FOR STUDY: persistent cough/silent aspiration COMPARISON: 09/19/2018. EXAM PARAMETERS: NUMBER OF VIEWS: One view. TECHNIQUE: Single frontal radiographic view of the chest acquired. RADIATION DOSE: NA LIMITATIONS: None. FINDINGS: LUNGS AND PLEURA: No opacities, masses or pneumothorax. No pleural effusion. MEDIASTINUM AND HILAR STRUCTURES: No masses. Contour normal. HEART AND VASCULAR STRUCTURES: Cardiomegaly unchanged. Normal vasculature. BONES: No acute findings. HARDWARE: Sternotomy wires. OTHER: No other significant finding. IMPRESSION: NO CHANGE IN APPEARANCE OF THE CHEST. STABLE CARDIOMEGALY. TECHNICAL DOCUMENTATION: JOB ID: [id number] [email or web address]- All Rights Reserved Reading location - IP/workstation name: [email or web address]
[2018-09-20] MEDS: FAMOTIDINE 20 MG TABLET PO SCH ×2 (09:10→21:39)
[2018-09-20] MEDS: ESCITALOPRAM OXALATE 10 MG TABLET PO SCH (09:10)
[2018-09-20] MEDS: PANTOPRAZOLE SODIUM 20 MG TABLET.DR PO SCH (09:10)
[2018-09-20] MEDS: HYDRALAZINE HCL 50 MG TABLET PO SCH ×2 (09:10→21:39)
[2018-09-20] MEDS: ASPIRIN 81 MG TABLET, ENT COATED PO SCH (09:11)
[2018-09-20] MEDS: LOSARTAN POTASSIUM 50 MG TABLET PO SCH (09:13)
[2018-09-20] MEDS: SITAGLIPTIN PHOSPHATE 50 MG TABLET PO SCH (09:14)
[2018-09-20] MEDS: OXCARBAZEPINE 150 MG TABLET PO SCH ×2 (09:14→21:38)
[2018-09-20] MEDS ORDERED: (PENDING PHARMACY ID) (Linagliptin [Tradjenta] 5 MG) PO SCH (10:00)
[2018-09-20] MEDS ORDERED: TELMISARTAN PO SCH (10:00)
[2018-09-20] MEDS ORDERED: (PENDING PHARMACY ID) (Escitalopram Oxalate [Lexapro] 40 MG) PO SCH (10:00)
[2018-09-20] MEDS ORDERED: AMLODIPINE PO SCH (10:00)
--- NOTE | 2018-09-20 11:56 | PDOC PROGRESS REPORT ---
Subjective Progress Note for:: 09/20/18 Subjective:: This is 72 years old male patient with past medical history of coronary artery disease, hypertension, hyperlipidemia, diabetes mellitus, obesity and COPD, brought by EMS after he developed stroke symptoms evidence it by facial droop on the left side. Since his presentation is within the therapeutic window patient was given TPA and admitted to the ICU. Morning patient seen while he is resting in bed. He is awake alert he speaks in full sentences and there is no slurring. The patient has a slight left facial droop. 09/20/2018: Patient seen and examined while he is propped up in bed. He has been sleeping. But he is arousable. Yesterday after the TPA administration he is witnessed to have blood-tinged urine in his urinary bag. Today it is com pletely clear. His chest x-ray and blood works are reviewed and is are within normal limits. We will resume his aspirin after 24 hours to be administration. Reason For Visit: ISCHEMIC CVA S/P TPA Physical Exam Vital Signs: Temp Pulse Resp BP Pulse Ox 97.7 F 58 L 19 152/66 H 95 09/20/18 08:00 09/20/18 10:00 09/20/18 10:00 09/20/18 10:00 09/20/18 10:00 Intake & Output 09/19/18 09/20/18 09/21/18 06:59 06:59 06:59 Intake Total 104 662 0 Output Total 980 1155 95 Balance -876 -493 -95 Weight 108.5 kg 103.2 kg General appearance: PRESENT: no acute distress Eye exam: PRESENT: conjunctiva pink Neck exam: ABSENT: carotid bruit, JVD, lymphadenopathy, thyromegaly Respiratory exam: PRESENT: decreased breath sounds Results Laboratory Results: 09/19/18 16:29 09/19/18 04:45 09/19/18 16:29 WBC 7.7 RBC 4.67 Hgb 14.1 Hct 41.4 MCV 89 MCH 30.2 MCHC 34.1 RDW 14.9 H Plt Count 235 Seg Neutrophils % 70.8 Lymphocytes % 17.5 Monocytes % 9.0 Eosinophils % 1.8 Basophils % 0.9 Absolute Neutrophils 5.5 Absolute Lymphocytes 1.4 Absolute Monocytes 0.7 Absolute Eosinophils 0.1 Absolute Basophils 0.1 09/18/18 09/18/18 13:05 13:05 Creatine Kinase 160 CK-MB (CK-2) 6.70 H Troponin I < 0.012 Impressions: Head CT 09/18/18 13:05 IMPRESSION: Mild involutional changes. No acute intracranial imaging finding. Posterior fossa arachnoid cyst. EVIDENCE OF ACUTE STROKE: NO. Head CTA 09/18/18 13:05 IMPRESSION: NO CTA EVIDENCE OF STENOSIS OR ANEURYSM OF THE [place]. Neck CTA 09/18/18 13:05 IMPRESSION: NORMAL CTA OF THE EXTRA-CRANIAL CAROTID AND VERTEBRAL ARTERIES. Head MRI 09/19/18 00:00 IMPRESSION: ATROPHY AND CHRONIC MICRO-VASCULAR ISCHEMIC CHANGES. RESTRICTED DIFFUSION ON THE RIGHT SIDE IN THE REGION OF THE LOCO RADIATA. EVIDENCE OF ACUTE STROKE: YES. RIGHT MCA. Chest X-Ray 09/20/18 07:39 IMPRESSION: NO CHANGE IN APPEARANCE OF THE CHEST. STABLE CARDIOMEGALY. Assessment and Plan - Diagnosis (1) Acute ischemic stroke Is this a current diagnosis for this admission?: Yes Plan: Patient is status post TPA administration. Patient is being managed as post TPA protocol. His blood pressure is relatively controlled. Patient qualifies for acute short-term rehab for less than 30 days. (2) Coronary artery disease Is this a current diagnosis for this admission?: Yes Plan: No anginal symptoms (3) COPD (chronic obstructive pulmonary disease) Qualifiers: Emphysema type: unspecified Is this a current diagnosis for this admission?: Yes Plan: He is saturating well. (4) Type 2 diabetes mellitus Is this a current diagnosis for this admission?: Yes
[2018-09-20] MEDS: METOPROLOL TARTRATE 50 MG TABLET PO SCH (17:27)
[2018-09-20] MEDS: AMLODIPINE BESYLATE 10 MG TABLET PO SCH (17:28)
[2018-09-20] MEDS ORDERED: NORMAL SALINE 1000 ML 1,000 ML IV ONE (18:30)
[2018-09-20] MEDS: NORMAL SALINE 1000 ML 1,000 ML IV PRN (20:01)
[2018-09-20] MEDS: CLONAZEPAM 1 MG TABLET PO SCH (21:38)
[2018-09-20] MEDS: ATORVASTATIN CALCIUM 80 MG TABLET PO SCH (21:39)
[2018-09-20] MEDS: SIMVASTATIN 40 MG TABLET PO SCH (21:39)
[2018-09-20] MEDS: DONEPEZIL HCL PO SCH (21:48)
[2018-09-20] MEDS: MEMANTINE HCL PO SCH (21:48)
[2018-09-21] MEDS: NORMAL SALINE 1000 ML 1,000 ML IV PRN ×2 (04:45→09:34)
[2018-09-21 06:09] LABS: HEMATOCRIT 38.8 % (37.9-51.0); HEMOGLOBIN 13.1 g/dL (13.5-17.0); MEAN CORPUSCULAR HEMOGLOBIN 30.2 pg (27.0-33.4); MEAN CORPUSCULAR HGB CONC 33.7 g/dL (32.0-36.0); MEAN CORPUSCULAR VOLUME 90 fl (80-97); PLATELET COUNT 204 10^3/uL (150-450); RED BLOOD COUNT 4.32 10^6/uL (4.35-5.55); RED CELL DISTRIBUTION WIDTH 15.3 % (11.5-14.0)
[2018-09-21 06:26] LABS: ANION GAP 7 (5-19); BLOOD UREA NITROGEN 17 mg/dL (7-20); CALCIUM 8.8 mg/dL (8.4-10.2); CARBON DIOXIDE 25 mmol/L (22-30); CHLORIDE 108 mmol/L (98-107); GLUCOSE 108 mg/dL (75-110); POTASSIUM 4.1 mmol/L (3.6-5.0)
[2018-09-21] MEDS: INSULIN LISPRO 100 UNIT/ML 3 ML VIAL SUBCUT SCH ×4 (08:08→22:42)
--- NOTE | 2018-09-21 08:57 | ST Inp Modified Barium Swallow ---
Medical Diagnosis - Medical Diagnoses Medical Diagnosis Description & ICD-10 Code(s): CVA - ICD-10 Tx Diagnosis Coding (1) Dysphagia ICD-10 Code(s): R13.10 - DYSPHAGIA, UNSPECIFIED ST Inpatient MBS - General Date: 09/21/18 Date of Onset: 09/18/18 - History -: Medical - per EMR: patient admitted 09/18 with left sided weakness and left fa cial droop. Prior medical history includes COPD, asthma, obstructive sleep apnea, mild PTSD, diabetes, hyperlipidemia, hypertension. Patient has suspected CVA, received tPA. Failed swallow screen x2 due to coughing. Speech pathologist completed a bedside swallow assessment on 09/19/18. At bedside, overt signs of aspiration seen with thin liquids, mild pocketing seen with puree. Recommended nectar liquids and puree solids at that time, as well as MBSS. Medications: Medications Reviewed Allergies: No known allergies - Subjective Current Nutritional Means: PO Current PO Diet: Pureed, Thickened liquids - nectar Current Symptoms: Coughing, other - failed nursing swallow screen x2 following CVA Pain: Patient reports, 0/5 - Objective Assessment: Upright, Left Lateral - Food Trials Food Trials Used: Honey-thickened liquids, [place] thick liquids, Pureed, Regular The Patient: Was Able to Self Feed - Assessment Labial Function: Impaired - left side weakness Lingual Function: Within Normal Limits Mandibular Function: Within Normal Limits Velo-Pharyngeal Function: Unremarkable Laryngeal Function: Weak Cough, clear voicing - Pharyngeal Stage Initiation of Pharyngeal Stage: Delayed - triggered at level of pyriform Decreased Laryngeal Elevation: No Reduced Velo-Pharyngeal Closure: no Reduced Pressure Generation: Yes Reduced Tongue Base Retraction: No Pre-Swallowing Pooling in Valleculae: Moderate Pre-Swallowing Pooling in Pyriforms: Mild Reduced Epiglottic Excursion: No Multiple Swallows With: Cleared w/ Liquid Assist Post Swallow Residuals in Valleculae: Moderate Post Swallow Residuals in Pyriforms: Mild Pahryngeal Stage Comments: Patient seen to take large sips of nectar liquids unless prompted for small sips. With large sips, loretta aspiration was seen without a cough reaction. - Impression/Summary Tracheal Aspiration: yes, silent, during swallow - with large nectar liquid bolus. Not seen with cued smaller sips Effective Clearing: no Compensatory Strategies: reduced bolus size Patient Presents With: Pharyngeal stage dysph., Mild-Moderate Risk of Aspiration: Moderate Risk Due To: Patient is at moderate risk of aspiration due to delayed swallow reflex and difficulty controlling bolus size. - Recommendations Solid Diet Recommendations: Mechanical Soft, Ground Meat Liquid Diet Recommendations: [place]-Thick Strict Aspitarion Precautions: Yes Dysphagia Therapy with SNOW RANGER: Yes - Plan to follow up with dysphagia treatment 2x per week. Short Term Goals: patient will demonstrate appropriate bolus sizes independnetly in 4/5 sips of nectar liquid. patient will complete effortful swallow independently with nectar liquids or ice chips in 8/10 trials. Recommended Techniques: Fully Upright During Meal, Check Mouth for Pocketing, Med Crushed in Applesauce, Small Bites and Sips - Time Total Time: 30 Total Timed Minutes: 30
[2018-09-21] MEDS: ESCITALOPRAM OXALATE 10 MG TABLET PO SCH (09:31)
[2018-09-21] MEDS: ASPIRIN 81 MG TABLET, ENT COATED PO SCH (09:32)
[2018-09-21] MEDS: FAMOTIDINE 20 MG TABLET PO SCH ×2 (09:32→22:48)
[2018-09-21] MEDS: PANTOPRAZOLE SODIUM 20 MG TABLET.DR PO SCH (09:32)
[2018-09-21] MEDS: METOPROLOL TARTRATE 50 MG TABLET PO SCH (09:33)
[2018-09-21] MEDS: HYDRALAZINE HCL 50 MG TABLET PO SCH ×2 (09:33→22:48)
[2018-09-21] MEDS: SITAGLIPTIN PHOSPHATE 50 MG TABLET PO SCH (09:33)
[2018-09-21] MEDS: LOSARTAN POTASSIUM 50 MG TABLET PO SCH (09:34)
[2018-09-21] MEDS: AMLODIPINE BESYLATE 10 MG TABLET PO SCH (09:34)
[2018-09-21] MEDS: OXCARBAZEPINE 150 MG TABLET PO SCH ×2 (09:40→22:48)
--- NOTE | 2018-09-21 10:07 | RADIOLOGY REPORT (SQ) ---
EXAM DESCRIPTION: COOKIE SWALLOW COMPLETED DATE/TIME: 09/21/2018 9:03 am REASON FOR STUDY: RULE OUT ASPIRATION COMPARISON: None. TECHNIQUE: Videofluoroscopic swallowing examination was performed in conjunction with speech patholo gy. Videofluoroscopic imaging was obtained and reviewed and these are the findings: RADIATION DOSE: 2 minutes 43 seconds Video swelling images saved to speech pathology archive. LIMITATIONS: None FINDINGS: The patient was brought into the fluoro room and placed upright on a modified barium swall ow chair. The patient was then given multiple consistencies mixed with barium to swallow under live fluoroscopic video guidance. According to the Speech Pathologist there was penetration of the laryng eal vestibule and subglottic aspiration on the initial thin liquid barium swallow. Subsequent swelli ng with other consistencies were well tolerated by the patient. IMPRESSION: Penetration of the laryngeal vestibule and subglottic aspiration on the initial thin liq uid barium swallow. Other consistencies were well tolerated. PLEASE SEE SPEECH PATHOLOGIST REPORT FO R OTHER FINDINGS AND RECOMMENDATIONS. COMMENT: Quality ID [id number]: Final reports for procedures using fluoroscopy that document radiation exp osure indices, or exposure time and number of fluorographic images (if radiation exposure indices are not available) TECHNICAL DOCUMENTATION: JOB ID: [id number] [employer]- All Rights Reserved Reading location - IP/workstation name: [email or web address]
--- NOTE | 2018-09-21 11:55 | PDOC PROGRESS REPORT ---
Subjective Progress Note for:: 09/21/18 Subjective:: This is 72 years old male patient with past medical history of coronary artery disease, hypertension, hyperlipidemia, diabetes mellitus, obesity and COPD, brought by EMS after he developed stroke symptoms evidence it by facial droop on the left side. Since his presentation is within the therapeutic window patient was given TPA and admitted to the ICU. Morning patient seen while he is resting in bed. He is awake alert he speaks in full sentences and there is no slurring. The patient has a slight left facial droop. 09/20/2018: Patient seen and examined while he is propped up in bed. He has been sleeping. But he is arousable. Yesterday after the TPA administration he is witnessed to have blood-tinged urine in his urinary bag. Today it is com pletely clear. His chest x-ray and blood works are reviewed and is are within normal limits. We will resume his aspirin after 24 hours to be administration. 09/21/2018: No significant change overnight. Patient seen propped up in bed he is awake alert. He asks if he can go home. Patient has been awaiting placement rehab. He is downgraded to [facility]. Reason For Visit: ISCHEMIC CVA S/P TPA Physical Exam Vital Signs: Temp Pulse Resp BP Pulse Ox 98.0 F 55 L 16 156/64 H 96 09/21/18 10:00 09/21/18 11:25 09/21/18 11:25 09/21/18 11:25 09/21/18 11:25 Intake & Output 09/20/18 09/21/18 09/22/18 06:59 06:59 06:59 Intake Total 662 3067 719 Output Total 1155 592 185 Balance -493 1325 534 Weight 103.2 kg 106.9 kg General appearance: PRESENT: no acute distress Head exam: PRESENT: atraumatic Neck exam: ABSENT: carotid bruit, JVD, lymphadenopathy, thyromegaly Respiratory exam: PRESENT: clear to auscultation german. ABSENT: rales, rhonchi, wheezes Cardiovascular exam: PRESENT: RRR. ABSENT: diastolic murmur, rubs, systolic murmur Neurological exam: PRESENT: alert, awake Results Laboratory Results: 09/21/18 06:06 09/21/18 06:06 09/21/18 09/21/18 06:06 06:06 WBC 7.0 RBC 4.32 L Hgb 13.1 L Hct 38.8 MCV 90 MCH 30.2 MCHC 33.7 RDW 15.3 H Plt Count 204 Sodium 140.2 Potassium 4.1 Chloride 108 H Carbon Dioxide 25 Anion Gap 7 BUN 17 Creatinine 0.76 Est GFR ( Amer) > 60 Est GFR (Non-Af Amer) > 60 Glucose 108 Calcium 8.8 09/18/18 09/18/18 13:05 13:05 Creatine Kinase 160 CK-MB (CK-2) 6.70 H Troponin I < 0.012 Impressions: Head CT 09/18/18 13:05 IMPRESSION: Mild involutional changes. No acute intracranial imaging finding. Posterior fossa arachnoid cyst. EVIDENCE OF ACUTE STROKE: NO. Head CTA 09/18/18 13:05 IMPRESSION: NO CTA EVIDENCE OF STENOSIS OR ANEURYSM OF THE [place]. Neck CTA 09/18/18 13:05 IMPRESSION: NORMAL CTA OF THE EXTRA-CRANIAL CAROTID AND VERTEBRAL ARTERIES. Head MRI 09/19/18 00:00 IMPRESSION: ATROPHY AND CHRONIC MICRO-VASCULAR ISCHEMIC CHANGES. RESTRICTED DIFFUSION ON THE RIGHT SIDE IN THE REGION OF THE LOCO RADIATA. EVIDENCE OF ACUTE STROKE: YES. RIGHT MCA. Chest X-Ray 09/20/18 07:39 IMPRESSION: NO CHANGE IN APPEARANCE OF THE CHEST. STABLE CARDIOMEGALY. Modified Barium Swallow 09/21/18 08:00 IMPRESSION: Penetration of the laryngeal vestibule and subglottic aspiration on the initial thin liquid barium swallow. Other consistencies were well tolerated. PLEASE SEE SPEECH PATHOLOGIST REPORT FOR OTHER FINDINGS AND RECOMMENDATIONS. Assessment and Plan - Diagnosis (1) Acute ischemic stroke Is this a current diagnosis for this admission?: Yes Plan: Patient is status post TPA administration. Patient is being managed as post TPA protocol. His blood pressure is relatively controlled. Patient qualifies for acute short-term rehab for less than 30 days. (2) Coronary artery disease Is this a current diagnosis for this admission?: Yes Plan: No anginal symptoms (3) COPD (chronic obstructive pulmonary disease) Qualifiers: Emphysema type: unspecified Is this a current diagnosis for this admission?: Yes Plan: He is saturating well. (4) Type 2 diabetes mellitus Is this a current diagnosis for this admission?: Yes Plan: Continue his home medication and put him on sliding scale. (5) Obesity (BMI 30.0-34.9) Is this a current diagnosis for this admission?: Yes Plan: Abdomen correct after modification.
--- NOTE | 2018-09-21 17:43 | XCELERA REPORT ---
[address] [address] Transthoracic Echocardiogram Report Name: ROMERO KELLEY Age: 72 yrs Gender: Male : 1945 Patient Status: Inpatient Patient Location: [place] [id number]^A Study Date: 09/18/2018 05:37 PM Height: 72 in Weight: 244 lb BSA: 2.3 m2 Procedure: A two-dimensional transthoracic echocardiogram with color flow and Doppler was performed. Study Quality: Poor. Images were not obtained from all of the standard acoustic windows due to the limited scope of the study. Reason For Study: CVA History: CVA. Ordering Physician: SAV ROBIN Performed By: Christina Kaiser Interpretation Summary Apical viewsare un interpretable.The anterosepyum and Posterior wall contract normaly.Other sheets not seen Probably no or AR.Trace MR ,and Trace TR.prbably normal RVSP of 27 mm of Hg. Strongly recommend [facility] for cardiac source of Emboli. Apical viewsare un interpretable.The anterosepyum and Posterior wall contract normaly.Other sheets not seen Probably no or AR.Trace MR ,and Trace TR.prbably normal RVSP of 27 mm of Hg. Strongly recommend [facility] for cardiac source of Emboli. MMode/2D Measurements & Calculations RVDd: 2.6 cm LVIDd: 5.9 cm FS: 33.9 % Ao root diam: 3.3 cm IVSd: 1.1 cm LVIDs: 3.9 cm EDV(Teich): 176.0 ml Ao root area: 8.3 cm2 LVPWd: 1.2 cm ESV(Teich): 66.9 ml LA dimension: 4.2 cm EF(Teich): 62.0 % Doppler Measurements & Calculations MV E max penny: MV P1/2t max penny: Ao V2 max: LV V1 max P.2 cm/sec 83.4 cm/sec 113.4 cm/sec 4.9 mmHg MV A max penny: MV P1/2t: 50.1 msec Ao max PG: LV V1 max: 74.0 cm/sec MVA(P1/2t): 4.4 cm2 5.1 mmHg 110.6 cm/sec MV E/A: 0.87 MV dec slope: 487.6 cm/sec2 MV dec time: 0.24 sec PA V2 max: PI end-d penny: TR max penny: MV P1/2t-pr_phl: 92.1 cm/sec 87.3 cm/sec 203.6 cm/sec 50.1 msec PA max PG: TR max P.4 mmHg 16.6 mmHg : SAV ROBIN > Jolly Chaudhry
[2018-09-21] MEDS: CLONAZEPAM 1 MG TABLET PO SCH (22:47)
[2018-09-21] MEDS: SIMVASTATIN 40 MG TABLET PO SCH (22:47)
[2018-09-21] MEDS: MEMANTINE HCL PO SCH (22:48)
[2018-09-21] MEDS: DONEPEZIL HCL PO SCH (22:48)
[2018-09-21] MEDS: ATORVASTATIN CALCIUM 80 MG TABLET PO SCH (22:48)
[2018-09-22] MEDS ORDERED: HYDRALAZINE HCL INJ/PF 20 MG/1 ML SDV IV PRN (00:50)
[2018-09-22] MEDS ORDERED: ZOLPIDEM TARTRATE 5 MG TABLET PO ONE (01:00)
[2018-09-22] MEDS ORDERED: ENALAPRILAT DIHYDRATE INJ/PF 2.5 MG/2 ML SDV IV ONE (04:00)
[2018-09-22 04:25] LABS: HEMATOCRIT 39.1 % (37.9-51.0); HEMOGLOBIN 13.3 g/dL (13.5-17.0); MEAN CORPUSCULAR HEMOGLOBIN 30.2 pg (27.0-33.4); MEAN CORPUSCULAR HGB CONC 34.1 g/dL (32.0-36.0); MEAN CORPUSCULAR VOLUME 89 fl (80-97); PLATELET COUNT 222 10^3/uL (150-450); RED BLOOD COUNT 4.41 10^6/uL (4.35-5.55); WHITE BLOOD COUNT 10.7 10^3/uL (4.0-10.5)
[2018-09-22] MEDS: INSULIN LISPRO 100 UNIT/ML 3 ML VIAL SUBCUT SCH ×4 (07:59→21:17)
[2018-09-22] MEDS: OXCARBAZEPINE 150 MG TABLET PO SCH ×2 (09:34→21:34)
[2018-09-22] MEDS: PANTOPRAZOLE SODIUM 20 MG TABLET.DR PO SCH (09:34)
[2018-09-22] MEDS: SITAGLIPTIN PHOSPHATE 50 MG TABLET PO SCH (09:34)
[2018-09-22] MEDS: LOSARTAN POTASSIUM 50 MG TABLET PO SCH ×2 (09:34→21:35)
[2018-09-22] MEDS: HYDRALAZINE HCL 50 MG TABLET PO SCH ×2 (09:34→21:34)
[2018-09-22] MEDS: AMLODIPINE BESYLATE 10 MG TABLET PO SCH (09:35)
[2018-09-22] MEDS: METOPROLOL TARTRATE 50 MG TABLET PO SCH (09:35)
[2018-09-22] MEDS: ASPIRIN 81 MG TABLET, ENT COATED PO SCH (09:35)
[2018-09-22] MEDS: ESCITALOPRAM OXALATE 10 MG TABLET PO SCH (09:35)
[2018-09-22] MEDS: FAMOTIDINE 20 MG TABLET PO SCH ×2 (09:35→21:34)
[2018-09-22] MEDS: NORMAL SALINE 1000 ML 1,000 ML IV PRN ×2 (09:47→21:44)
--- NOTE | 2018-09-22 19:24 | PDOC PROGRESS REPORT ---
Subjective Progress Note for:: 09/22/18 Subjective:: The patient is sleeping in his chair. He did work with physical therapy earlier today. It did take some prompting to awaken him. After a brief encounter he did fall back asleep. Reason For Visit: ISCHEMIC CVA S/P TPA Physical Exam Vital Signs: Temp Pulse Resp BP Pulse Ox 98.1 F 49 L 16 176/64 H 93 09/22/18 11:12 09/22/18 11:12 09/22/18 11:12 09/22/18 11:12 09/22/18 11:12 Intake & Output 09/21/18 09/22/18 09/23/18 06:59 06:59 06:59 Intake Total 1917 2359 Output Total 592 1060 Balance 1325 1299 Weight 106.9 kg 108 kg General appearance: PRESENT: no acute distress, well-developed. ABSENT: coopera tive - Sleepy during the encounter. Limited interaction. Head exam: PRESENT: atraumatic, normocephalic Eye exam: PRESENT: conjunctiva pink. ABSENT: scleral icterus Ear exam: PRESENT: normal external ear exam Respiratory exam: PRESENT: clear to auscultation german, symmetrical, unlabored. ABSENT: accessory muscle use, rales, rhonchi, tachypnea, wheezes Cardiovascular exam: PRESENT: RRR, +S1, +S2 GI/Abdominal exam: PRESENT: normal bowel sounds, soft. ABSENT: distended, tenderness Rectal exam: PRESENT: deferred Gentrourinary exam: PRESENT: indwelling catheter Neurological exam: PRESENT: awake, oriented to person, oriented to place. ABSENT: alert - Quite somnolent. Briefly interacted then fell back asleep. Psychiatric exam: PRESENT: flat affect. ABSENT: agitated, anxious Focused psych exam: ABSENT: delusional, restlessness Results Laboratory Results: 09/22/18 04:01 09/21/18 06:06 09/22/18 04:01 WBC 10.7 H RBC 4.41 Hgb 13.3 L Hct 39.1 MCV 89 MCH 30.2 MCHC 34.1 RDW 15.0 H Plt Count 222 09/18/18 09/18/18 13:05 13:05 Creatine Kinase 160 CK-MB (CK-2) 6.70 H Troponin I < 0.012 Impressions: Head CT 09/18/18 13:05 IMPRESSION: Mild involutional changes. No acute intracranial imaging finding. Posterior fossa arachnoid cyst. EVIDENCE OF ACUTE STROKE: NO. Head CTA 09/18/18 13:05 IMPRESSION: NO CTA EVIDENCE OF STENOSIS OR ANEURYSM OF THE [place] OF [place]. Neck CTA 09/18/18 13:05 IMPRESSION: NORMAL CTA OF THE EXTRA-CRANIAL CAROTID AND VERTEBRAL ARTERIES. Head MRI 09/19/18 00:00 IMPRESSION: ATROPHY AND CHRONIC MICRO-VASCULAR ISCHEMIC CHANGES. RESTRICTED DIFFUSION ON THE RIGHT SIDE IN THE REGION OF THE LOCO RADIATA. EVIDENCE OF ACUTE STROKE: YES. RIGHT MCA. Chest X-Ray 09/20/18 07:39 IMPRESSION: NO CHANGE IN APPEARANCE OF THE CHEST. STABLE CARDIOMEGALY. Modified Barium Swallow 09/21/18 08:00 IMPRESSION: Penetration of the laryngeal vestibule and subglottic aspiration on the initial thin liquid barium swallow. Other consistencies were well tolerated. PLEASE SEE SPEECH PATHOLOGIST REPORT FOR OTHER FINDINGS AND RECOMMENDATIONS. Assessment and Plan - Diagnosis (1) Acute ischemic stroke Is this a current diagnosis for this admission?: Yes Plan: The patient experienced an acute ischemic stroke. He received TPA in the emergency department. He still has left-sided weakness. He is back on aspirin 81 mg daily. Physical therapy continues to work with the patient but he does have significant left-sided weakness needing significant assistance even with transfers. He also has dysphagia as noted on his modified barium swallow study. Continue therapeutic modalities and aspirin. (2) Coronary artery disease Qualifiers: Coronary Disease-Associated Artery/Lesion type: [place] artery Is this a current diagnosis for this admission?: Yes Plan: Patient has a history of coronary artery disease. He is currently stable. We will continue his current medication regimen. No acute coronary symptoms reported. (3) COPD (chronic obstructive pulmonary disease) Qualifiers: Emphysema type: unspecified Is this a current diagnosis for this admission?: Yes Plan: The patient has a history of COPD. He is on oxygen supplementation at 2 L/min by nasal cannula. He does not appear short of breath. He is not on any inhaler therapy. There is no inhaler therapy listed on his home medication regimen. We will try and wean him from his oxygen. (4) Obesity (BMI 30.0-34.9) Is this a current diagnosis for this admission?: Yes Plan: The patient has a BMI of 32.3. With his history of diabetes and coronary disease it would be beneficial for him to incorporate diet and when possible exercise into his treatment plan. (5) Type 2 diabetes mellitus Qualifiers: Diabetes mellitus terminal manager insulin use: without terminal manager use Is this a current diagnosis for this admission?: Yes Plan: The patient is on sitagliptin and insulin sliding scale as well as diabetic diet. He exhibits good control with Accu-Cheks typically below 150. Continue current regimen. (6) Left hemiplegia Is this a current diagnosis for this admission?: Yes Plan: Please also see PT and OT notes. The patient still needs significant assistance and fatigues easily. He will benefit from short-term acute rehab (less than 30 days) at a detention facility. According to the discharge planning notes a bed has been offered at a local facility and I will plan on discharge tomorrow. (7) Dysphagia Qualifiers: Dysphagia type: oropharyngeal phase Qualified Code(s): R13.12 - Dysphagia, oropharyngeal phase Is this a current diagnosis for this admission?: Yes Plan: Please also see speech therapy notes in the modified barium swallow study results. The speech therapist has recommended ground meats with soft mechanical diet and nectar thick liquids. The patient seems to be tolerating this. He will need ongoing speech therapy in addition to physical and occupational therapies. This will be available at the detention facility. (8) Hypertension Qualifiers: Hypertension type: essential hypertension Qualified Code(s): I10 - Essential (primary) hypertension Is this a current diagnosis for this admission?: Yes Plan: The patient's blood pressures have been slightly higher than desired but his pulse rate has been slow. I am going to decrease his metoprolol tartrate to 50 mg and administer it at 25 mg twice daily with the parameter of holding for bradycardia. In addition I am increasing his losartan to 50 mg twice daily from once daily. We will continue the amlodipine as ordered. (9) Dementia Qualifiers: Dementia type: unspecified type Dementia behavioral disturbance: without behavioral disturbance Qualified Code(s): F03.90 - Unspecified dementia without behavioral disturbance Is this a current diagnosis for this admission?: Yes Plan: The patient is continuing his own medication (Namzaric) for dementia as it is not on formulary. (10) Hyperlipidemia Is this a current diagnosis for this admission?: Yes Plan: Fasting lipid profile shows that the patient's LDL is 120 and a goal for this patient would be 70. His HDL is under the desired therapeutic range as well. Triglycerides are slightly high and therefore we will continue the atorvastatin 80 mg daily as well as the cardiac diabetic diet. - Time Time Spent with patient: 25-34 minutes Medications reviewed and adjusted accordingly: Yes Anticipated discharge: SNF Within: within 24 hours
[2018-09-22] MEDS: SIMVASTATIN 40 MG TABLET PO SCH (21:34)
[2018-09-22] MEDS: TOLTERODINE TARTRATE 1 MG TABLET PO SCH (21:34)
[2018-09-22] MEDS: CLONAZEPAM 1 MG TABLET PO SCH (21:34)
[2018-09-22] MEDS: ATORVASTATIN CALCIUM 80 MG TABLET PO SCH (21:34)
[2018-09-22] MEDS: MEMANTINE HCL PO SCH (21:35)
[2018-09-22] MEDS: DONEPEZIL HCL PO SCH (21:35)
[2018-09-22] MEDS ORDERED: (PENDING PHARMACY ID) (Solifenacin Succinate [Vesicare] 5 MG) PO SCH (22:00)
[2018-09-23 04:53] LABS: HEMATOCRIT 37.6 % (37.9-51.0); HEMOGLOBIN 12.7 g/dL (13.5-17.0); MEAN CORPUSCULAR HEMOGLOBIN 30.2 pg (27.0-33.4); MEAN CORPUSCULAR HGB CONC 33.7 g/dL (32.0-36.0); MEAN CORPUSCULAR VOLUME 90 fl (80-97); PLATELET COUNT 224 10^3/uL (150-450); RED BLOOD COUNT 4.21 10^6/uL (4.35-5.55); RED CELL DISTRIBUTION WIDTH 15.4 % (11.5-14.0); WHITE BLOOD COUNT 7.2 10^3/uL (4.0-10.5)
[2018-09-23 05:12] LABS: ANION GAP 9 (5-19); BLOOD UREA NITROGEN 18 mg/dL (7-20); CALCIUM 8.8 mg/dL (8.4-10.2); CARBON DIOXIDE 24 mmol/L (22-30); CHLORIDE 105 mmol/L (98-107); GLUCOSE 104 mg/dL (75-110)
[2018-09-23] MEDS: NORMAL SALINE 1000 ML 1,000 ML IV PRN (06:13)
[2018-09-23] MEDS: INSULIN LISPRO 100 UNIT/ML 3 ML VIAL SUBCUT SCH ×3 (09:03→16:22)
[2018-09-23] MEDS: PANTOPRAZOLE SODIUM 20 MG TABLET.DR PO SCH (09:16)
[2018-09-23] MEDS: SITAGLIPTIN PHOSPHATE 50 MG TABLET PO SCH (09:16)
[2018-09-23] MEDS: ESCITALOPRAM OXALATE 10 MG TABLET PO SCH (09:16)
[2018-09-23] MEDS: OXCARBAZEPINE 150 MG TABLET PO SCH (09:16)
[2018-09-23] MEDS: LOSARTAN POTASSIUM 50 MG TABLET PO SCH (09:16)
[2018-09-23] MEDS: FAMOTIDINE 20 MG TABLET PO SCH (09:16)
[2018-09-23] MEDS: TOLTERODINE TARTRATE 1 MG TABLET PO SCH (09:16)
[2018-09-23] MEDS: HYDRALAZINE HCL 50 MG TABLET PO SCH (09:16)
[2018-09-23] MEDS: ASPIRIN 81 MG TABLET, ENT COATED PO SCH (09:16)
[2018-09-23] MEDS: AMLODIPINE BESYLATE 10 MG TABLET PO SCH (09:16)
[2018-09-23] MEDS ORDERED: METOPROLOL TARTRATE 25 MG TABLET PO SCH (10:00)
--- NOTE | 2018-09-23 10:09 | PDOC TRANSFER SUMMARY ---
General - Admit/Disc Date/PCP Admission Date/Primary Care Provider: 09/18/18 16:20 IVONNE CAMARA MD Discharge Date: 09/23/18 - Discharge Diagnosis (1) Acute ischemic stroke Is this a current diagnosis for this admission?: Yes Summary: The patient presented with an acute ischemic stroke and left-sided weakness. He did receive TPA in the emergency department. He still has significant weakness and requires max assist with therapy. He is transferring to longterm facility for rehab. He also was having hematuria from the TPA but this has cleared. Goals will be good blood pressure control, statin therapy and aspirin therapy. The patient will also need aggressive PT and OT. (2) Coronary artery disease Is this a current diagnosis for this admission?: Yes Summary: Continue current medication regimen. Patient is on multiple cardiac medications. (3) COPD (chronic obstructive pulmonary disease) Is this a current diagnosis for this admission?: Yes Summary: The patient does wear CPAP at night. He is currently not on inhaler therapy. His breathing is comfortable. (4) Obesity (BMI 30.0-34.9) Is this a current diagnosis for this admission?: Yes Summary: Would benefit from aggressive diet. When he can tolerate it, he should consider increased exercise program. (5) Type 2 diabetes mellitus Is this a current diagnosis for this admission?: Yes Summary: He is on colonic Sherly at home. He is also on sliding scale. He has been on sitagliptin during his admission with good control. (6) Left hemiplegia Is this a current diagnosis for this admission?: Yes Summary: Secondary to acute ischemic infarct. Will require aggressive physical and occupational therapy. (7) Dysphagia Is this a current diagnosis for this admission?: Yes Summary: Currently on mechanical soft with nectar thick liquids. Continue speech therapy. (8) Hypertension Is this a current diagnosis for this admission?: Yes Summary: Continue current medications. Strive for systolic blood pressure 120 and diastolic of 80. (9) Dementia Is this a current diagnosis for this admission?: Yes Summary: Continue Namzaric (10) Hyperlipidemia Is this a current diagnosis for this admission?: Yes Summary: Continue statin therapy (11) Hematuria Is this a current diagnosis for this admission?: Yes Summary: Resolved. Will remove Chen catheter. There is a possibility of prostatic hypertrophy based on the difficulty inserting the catheter as well as my discussion with the patient's . She reported hesitancy, dribbling and nocturia. I taken liberty of starting patient on Flomax. (12) SERENA on CPAP Is this a current diagnosis for this admission?: Yes Summary: Continue CPAP. This is chronic. - Additional Information Resuscitation Status: Full Code Discharge Diet: Cardiac, Diabetic, Other (Comments) - Soft mechanical with nectar thick liquid Discharge Activity: Other - Per therapy at longterm facility Home Medications: Aspirin 81 mg PO DAILY 09/26/15 Clonazepam [Klonopin] 0.5 mg PO QHS 09/26/15 Escitalopram Oxalate [Lexapro] 40 mg PO DAILY 09/26/15 Omeprazole 20 mg PO DAILY 09/26/15 Oxcarbazepine [Trileptal] 600 mg PO Q12 09/26/15 Solifenacin Succinate [Vesicare] 5 mg PO HSP PRN 09/26/15 Hydralazine HCl [Apresoline 50 mg Tablet] 50 mg PO Q12 01/17/16 Cyclobenzaprine HCl [Flexeril 5 mg Tablet] 5 mg PO DAILYP PRN 09/18/18 Linagliptin [Tradjenta] 5 mg PO DAILY 09/18/18 Memantine HCl/Donepezil HCl [Namzaric 28 mg-10 mg Capsule] 1 cap PO QHS 09/18/18 Metoprolol Tartrate [Lopressor 50 mg Tablet] 75 mg PO DAILY 09/18/18 Telmisartan/Amlodipine [Telmisartan-Amlodipine 40-10] 1 each PO DAILY 09/18/18 Atorvastatin Calcium [Lipitor 80 mg Tablet] 80 mg PO QHS #30 tablet 09/23/18 Tamsulosin HCl [Flomax 0.4 mg Cap.sr] 0.4 mg PO DAILY #7 cap.sr.24h 09/23/18 Additional Information: Atorvastatin 80 mg daily Flomax 0.4 mg daily History of Present Illness Admission Date/PCP: 09/18/18 16:20 IVONNE CAMARA MD Patient complains of: Acute onset left-sided weakness History of Present Illness: ROMERO KELLEY is a 72 year old male with a complex medical history including coronary disease, diabetes, hypertension and obstructive sleep apnea. He began to have falls at home and then acutely developed left-sided facial droop and left-sided weakness. He was transported to the emergency department. Diagnosis of stroke was made and he was given TPA and referred to the hospital service for admission. Hospital Course Hospital Course: The patient did develop hematuria with insertion of the Chen catheter. He required continuous bladder irrigation. This is cleared and so we will remove the Chen catheter. Discussion with his today reveals symptoms of prostatic hypertrophy and therefore I will start him on Flomax 0.4 mg daily at discharge. Physical Exam Vital Signs: Temp Pulse Resp BP Pulse Ox 98.1 F 55 L 20 168/67 H 92 09/23/18 07:27 09/23/18 07:27 09/23/18 07:27 09/23/18 07:27 09/23/18 07:27 Intake & Output 09/22/18 09/23/18 09/24/18 06:59 06:59 06:59 Intake Total 2359 2208 Output Total 1060 975 Balance 1299 1233 Weight 108 kg 108.4 kg General appearance: PRESENT: no acute distress, cooperative Head exam: PRESENT: atraumatic, normocephalic Respiratory exam: PRESENT: clear to auscultation german, symmetrical, unlabored. ABSENT: rales, rhonchi, tachypnea, wheezes Cardiovascular exam: PRESENT: RRR, +S1, +S2 GI/Abdominal exam: PRESENT: normal bowel sounds, soft. ABSENT: distended, tenderness Rectal exam: PRESENT: deferred Gentrourinary exam: PRESENT: indwelling catheter Extremities exam: ABSENT: joint swelling, pedal edema Musculoskeletal exam: PRESENT: other - Still with weakness on the left side. Hand squeeze is 3/5 while the right is 5/5. Neurological exam: PRESENT: awake, oriented to person, oriented to place, oriented to situation, motor sensory deficit - Left arm weakness as above. Also with dysphagia.. ABSENT: alert - He is awake but again feels tired all the time., normal gait - Needs max assist of 2 Psychiatric exam: PRESENT: flat affect. ABSENT: agitated, anxious Focused psych exam: ABSENT: delusional, restlessness Results Laboratory Results: 09/23/18 03:58 09/23/18 03:58 09/23/18 09/23/18 03:58 03:58 WBC 7.2 RBC 4.21 L Hgb 12.7 L Hct 37.6 L MCV 90 MCH 30.2 MCHC 33.7 RDW 15.4 H Plt Count 224 Sodium 138.2 Potassium 4.0 Chloride 105 Carbon Dioxide 24 Anion Gap 9 BUN 18 Creatinine 0.86 Est GFR ( Amer) > 60 Est GFR (Non-Af Amer) > 60 Glucose 104 Calcium 8.8 Magnesium 1.6 09/18/18 09/18/18 13:05 13:05 Creatine Kinase 160 CK-MB (CK-2) 6.70 H Troponin I < 0.012 Impressions: Head CT 09/18/18 13:05 IMPRESSION: Mild involutional changes. No acute intracranial imaging finding. Posterior fossa arachnoid cyst. EVIDENCE OF ACUTE STROKE: NO. Head CTA 09/18/18 13:05 IMPRESSION: NO CTA EVIDENCE OF STENOSIS OR ANEURYSM OF THE TUOLUMNE OF [place]. Neck CTA 09/18/18 13:05 IMPRESSION: NORMAL CTA OF THE EXTRA-CRANIAL CAROTID AND VERTEBRAL ARTERIES. Head MRI 09/19/18 00:00 IMPRESSION: ATROPHY AND CHRONIC MICRO-VASCULAR ISCHEMIC CHANGES. RESTRICTED DIFFUSION ON THE RIGHT SIDE IN THE REGION OF THE LOCO RADIATA. EVIDENCE OF ACUTE STROKE: YES. RIGHT MCA. Chest X-Ray 09/20/18 07:39 IMPRESSION: NO CHANGE IN APPEARANCE OF THE CHEST. STABLE CARDIOMEGALY. Modified Barium Swallow 09/21/18 08:00 IMPRESSION: Penetration of the laryngeal vestibule and subglottic aspiration on the initial thin liquid barium swallow. Other consistencies were well tolerated. PLEASE SEE SPEECH PATHOLOGIST REPORT FOR OTHER FINDINGS AND RECOMMENDATIONS. Transfer Plan - Disposition Transfer Plan: Transfer to longterm facility - Time Spent with Patient Time spent with patient: Greater than 30 Minutes Qualifiers - * PATIENT BEING DISCHARGED WITH ANY OF THE FOLLOWING DIAGNOSIS: Stroke Stroke Pt being discharged on Anti-thrombolytic therapy?: Yes Stroke Pt being discharged on Anti-coagulation therapy?: No Reason(s) for not prescribing Anti-coagulation therapy:: Not indicated - And patient has hematuria Stroke Pt being discharged on Statins?: Yes Acute Heart Failure - Is this a Heart Failure Patient?: No Plan Discharge Plan: Transfer to longterm facility for short-term rehab. Time Spent: Greater than 30 Minutes
[2018-09-23 11:51] VITALS: BP 162/76
[2018-09-23] MEDS ORDERED: TAMSULOSIN HCL 0.4 MG CAP.SR.24H PO SCH (18:00)
== END 2018-09-23 16:48 | DRG 62 ==
LOC: ER 13:04 → EH 16:20 → ICU 19:44 → 3W 09-21 12:15
PROVIDERS: ADMIT Internal Medicine; ATTEND Internal Medicine
DX: I63.9 Cerebral infarction, unspecified (principal); G81.94 Hemiplegia, unspecified affecting left nondominant side; J44.9 Chronic obstructive pulmonary disease, unspecified; R13.10 Dysphagia, unspecified; E11.9 Type 2 diabetes mellitus without complications; F03.90 Unspecified dementia, unspecified severity, without behavioral disturbance, psychotic disturbance, mood disturbance, and anxiety; R31.9 Hematuria, unspecified; I10 Essential (primary) hypertension; E78.5 Hyperlipidemia, unspecified; E66.9 Obesity, unspecified; I25.10 Atherosclerotic heart disease of native coronary artery without angina pectoris; N40.0 Benign prostatic hyperplasia without lower urinary tract symptoms; G47.33 Obstructive sleep apnea (adult) (pediatric); R29.810 Facial weakness; F43.10 Post-traumatic stress disorder, unspecified; H35.30 Unspecified macular degeneration; W19.XXXA Unspecified fall, initial encounter; K44.9 Diaphragmatic hernia without obstruction or gangrene; M19.90 Unspecified osteoarthritis, unspecified site; F41.1 Generalized anxiety disorder; M21.372 Foot drop, left foot; R29.709 NIHSS score 9; Z68.34 Body mass index [BMI] 34.0-34.9, adult; Z79.84 Long term (current) use of oral hypoglycemic drugs; Z79.82 Long term (current) use of aspirin; Z95.1 Presence of aortocoronary bypass graft
CPT/HCPCS: 36415; 37195; 70450; 70496; 70498; 70551; 71045; 74230; 80048; 80053; 80061; 82550; 82553; 82962; 83036; 83735; 84484; 85025; 85027; 85610; 85730; 93005; 93010; 93306; 94660; 96365; 96366; 96367; 96375; 99285; C1758; J0360; J2997; J3490; J7030; J7040

== ENCOUNTER 2019-04-16 10:36 | Inpatient (IN) | payer MEDICARE, BC ==
[2019-04-16 11:12] LABS: ABSOLUTE LYMPHOCYTES (AUTO) 1.3 10^3/uL (0.5-4.7); ABSOLUTE MONOCYTES (AUTO) 1.8 10^3/uL (0.1-1.4); ABSOLUTE NEUT (AUTO) 9.4 10^3/uL (1.7-8.2); BASOPHILS % (AUTO) 0.3 % (0-2); EOSINOPHILS % (AUTO) 0.3 % (0-6); HEMATOCRIT 35.7 % (37.9-51.0); HEMOGLOBIN 12.3 g/dL (13.5-17.0); LYMPHOCYTES % (AUTO) 10.5 % (13-45); MEAN CORPUSCULAR HEMOGLOBIN 30.2 pg (27.0-33.4); MEAN CORPUSCULAR HGB CONC 34.4 g/dL (32.0-36.0); MEAN CORPUSCULAR VOLUME 88 fl (80-97); MONOCYTES % (AUTO) 14.3 % (3-13); PLATELET COUNT 286 10^3/uL (150-450); RED BLOOD COUNT 4.08 10^6/uL (4.35-5.55); RED CELL DISTRIBUTION WIDTH 16.4 % (11.5-14.0); SEGMENTED NEUTROPHILS % (AUTO) 74.6 % (42-78); TOTAL CELLS COUNTED % (AUTO) 100 %; WHITE BLOOD COUNT 12.6 10^3/uL (4.0-10.5)
[2019-04-16] MEDS: NORMAL SALINE 1000 ML 1,000 ML IV PRN ×2 (11:15→12:27)
--- NOTE | 2019-04-16 11:23 | ER Document Report ---
ED General - General Chief Complaint: Diarrhea Stated Complaint: ABNORMAL LABS Time Seen by Provider: 04/16/19 10:48 Mode of Arrival: Stretcher Information source: POA - Power of Deputy Sheriff Lieutenant Cannot obtain history due to: Dementia Notes: 73-year-old male arrives by EMS accompanied by Randall Ansari good friend of theirs.. 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 The patient's is Silva Dan. Both of these are good historians. Patient has some dementia and is a poor historian. Patient is suffered a stroke last year and usually is in recliner chair or bedridden. He cannot walk. He is covered by the [place]. According to Randall the patient has had loose stools for at least 5 months while he is at [facility]. He is scheduled for a cookie test next week according to his Silva.. Patient was being packa ged up for EMS when Randall said hello and he was not recognized by the patient. This was unusual according to Randall. The patient's blood pressure was 70 systolic and he was given 500 bolus by EMS. Nursing staff here at the ER gave the patient another 2 L and his pressure increased to 100/30. Patient was being sent to the ER by the senior living because of a 16,000 white blood cell count and lethargy and his creatinine was higher today. Patient was otherwise alert and awake and talkative but not oriented. TRAVEL OUTSIDE OF THE [place] IN LAST 30 DAYS: No - HPI Onset: This morning Onset/Duration: Sudden Quality of pain: No pain Severity: Mild Pain Level: 1 Associated symptoms: Weakness Relieved by: Denies Similar symptoms previously: No Recently seen / treated by doctor: Yes - Related Data Allergies/Adverse Reactions: No Known Allergies Allergy (Verified 04/12/16 16:56) Past Medical History - General Information source: Relative - , POA - Power of Deputy Sheriff Lieutenant, Emergency Med Personnel Cannot obtain history due to: Dementia - Social History Smoking Status: Unknown if Ever Smoked Cigarette use (# per day): No Chew tobacco use (# tins/day): No Smoking Education Provided: No Frequency of alcohol use: None Drug Abuse: None Family History: Reviewed & Not Pertinent Patient has suicidal ideation: No Patient has homicidal ideation: No - Past Medical History Cardiac Medical History: Reports: Hx Coronary Artery Disease, Hx Hypercholesterolemia, Hx Hypertension Denies: Hx Heart Attack Pulmonary Medical History: Reports: Hx Asthma, Hx COPD, Hx Pneumonia - BABY., Hx Sleep Apnea Denies: Hx Bronchitis Neurological Medical History: Denies: Hx Cerebrovascular Accident, Hx Seizures Endocrine Medical History: Reports: Hx Diabetes Mellitus Type 2 Renal/ Medical History: Denies: Hx Peritoneal Dialysis GI Medical History: Reports: Hx Hiatal Hernia. Denies: Hx Hepatitis, Hx Ulcer Musculoskeletal Medical History: Reports Hx Arthritis Psychiatric Medical History: Reports: Hx Post Traumatic Stress Disorder Infectious Medical History: Denies: Hx Hepatitis Past Surgical History: Reports: Hx Cardiac Surgery, Hx Cholecystectomy, Hx Coronary Artery Bypass Graft, Hx Orthopedic Surgery - left wrist, left foot. Denies: Hx Open Heart Surgery, Hx Pacemaker - Immunizations Hx Diphtheria, Pertussis, Tetanus Vaccination: Yes - UNSURE IN LAST 5 YEARS. Review of Systems - Review of Systems Constitutional: See HPI, Malaise, Weakness, Weight loss, Recent illness EENT: See HPI, Other - dry mouth Cardiovascular: No symptoms reported Respiratory: No symptoms reported Gastrointestinal: No symptoms reported, Diarrhea Genitourinary: No symptoms reported Male Genitourinary: No symptoms reported Musculoskeletal: No symptoms reported, Other - Patient able to use both legs but weakness and left greater than right and also left upper extremity weakness. Skin: No symptoms reported Hematologic/Lymphatic: No symptoms reported Neurological/Psychological: No symptoms reported, See HPI, Confusion, Dementia Physical Exam - Vital signs Vitals: Resp 19 04/16/19 10:38 Interpretation: Hypotensive - HEENT Head: Normocephalic Eyes: Pale conjunctiva Conjunctiva: Normal Cornea: Normal Extraocular movements intact: Yes Eyelashes: Normal Pupils: PERRL Ears: Normal Nasal: Normal Pharynx: Other - dry OP Neck: Normal - Respiratory Respiratory status: No respiratory distress Chest status: Nontender Breath sounds: Normal Chest palpation: Normal - Cardiovascular Rhythm: Regular Heart sounds: Normal auscultation Murmur: No Friction rub: No Lio's crunch: No - Abdominal Inspection: Normal Distension: No distension Bowel sounds: Hyperactive Tenderness: Nontender Organomegaly: No organomegaly Notes: loose stools brown on my entering room - Rectal Tenderness: No Stool: Other - brown stool - Back Back: Normal - Extremities General upper extremity: Normal inspection General lower extremity: Normal inspection - Neurological Neuro grossly intact: Yes Cognition: Confused Orientation: Disoriented to place, Disoriented to time, Disoriented to events Marion Coma Scale Eye Opening: Spontaneous Lali Coma Scale Verbal: Confused Lali Coma Scale Motor: Localizes to Pain Marion Coma Scale Total: 13 Speech: Normal Cranial nerves: Normal Cerebellar coordination: Normal Motor strength normal: LUE, RUE, LLE, RLE Course - Vital Signs Vital signs: Temp Pulse Resp BP Pulse Ox 97.4 F 50 L 17 126/56 H 100 04/17/19 08:00 04/17/19 08:29 04/17/19 08:29 04/17/19 08:00 04/17/19 08:29 - Laboratory Result Diagrams: 04/17/19 06:15 04/17/19 06:15 Laboratory results interpreted by me: 04/16/19 04/16/19 04/16/19 10:49 11:00 11:00 WBC 12.6 H RBC 4.08 L Hgb 12.3 L Hct 35.7 L RDW 16.4 H Lymph % (Auto) 10.5 L [place] % (Auto) 14.3 H Absolute Neuts (auto) 9.4 H Absolute Monos (auto) 1.8 H Carbonic Acid ABG pH ABG pCO2 ABG Total CO2 Sodium 128.6 L Chloride 89 L BUN 45 H Creatinine 4.26 H Est GFR ( Amer) 17 L Est GFR (MDRD) Non-Af 14 L Glucose 116 H POC Glucose 121 H Creatine Kinase 39 L Urine Protein Urine Blood Ur Leukocyte Esterase Urine Ascorbic Acid 04/16/19 04/16/19 11:55 12:45 WBC RBC Hgb Hct RDW Lymph % (Auto) [place] % (Auto) Absolute Neuts (auto) Absolute Monos (auto) Carbonic Acid 1.38 H ABG pH 7.28 L ABG pCO2 46.0 H ABG Total CO2 22.3 L Sodium Chloride BUN Creatinine Est GFR ( Amer) Est GFR (MDRD) Non-Af Glucose POC Glucose Creatine Kinase Urine Protein 30 H Urine Blood SMALL H Ur Leukocyte Esterase MODERATE H Urine Ascorbic Acid 40 H Critical Care Note - Critical Care Note Total time excluding time spent on procedures (mins): 90 Comments: I discussed this case with Rosa Elena at [address] Gonsalves consult and I then called him and he advises he will see the patient.. This was at 1255 Discharge - Discharge Clinical Impression: Sepsis associated hypotension Diarrhea Qualifiers: Diarrhea type: unspecified type Qualified Code(s): R19.7 - Diarrhea, unspecified UTI (urinary tract infection) Qualifiers: Urinary tract infection type: acute cystitis Hematuria presence: without hematuria Qualified Code(s): N30.00 - Acute cystitis without hematuria CHF (congestive heart failure) Qualifiers: Heart failure type: systolic Heart failure chronicity: acute Qualified Code(s): I50.21 - Acute systolic (congestive) heart failure Condition: Fair Disposition: ADMITTED INPATIENT Admitting Provider: Brina ([facility]) Unit Admitted: ICU
[2019-04-16] MEDS ORDERED: PIPERACILLIN/TAZOBACTAM 3.375 GM VIAL IV ONE (11:24)
[2019-04-16] MEDS ORDERED: VANCOMYCIN HCL INJ 1000 MG VIAL IV ONE ×2 (11:24→15:15)
[2019-04-16 12:03] LABS: ALBUMIN 3.8 g/dL (3.5-5.0); ALKALINE PHOSPHATASE 62 U/L (38-126); ANION GAP 15 (5-19); ASPARTATE AMINO TRANSFERASE 21 U/L (17-59); BILIRUBIN,DIRECT 0.3 mg/dL (0.0-0.4); BILIRUBIN,TOTAL 0.7 mg/dL (0.2-1.3); BLOOD UREA NITROGEN 45 mg/dL (7-20); CALCIUM 8.9 mg/dL (8.4-10.2); CARBON DIOXIDE 25 mmol/L (22-30); CHLORIDE 89 mmol/L (98-107); CREATINE KINASE 39 U/L (55-170); GLUCOSE 116 mg/dL (75-110); POTASSIUM 4.5 mmol/L (3.6-5.0); TOTAL PROTEIN 7.1 g/dL (6.3-8.2)
[2019-04-16 12:04] LABS: CREATINE KINASE MB 1.76 ng/mL (<4.55); TROPONIN I 0.017 ng/mL
[2019-04-16 12:16] LABS: AMORPHOUS SEDIMENT,URINE TRACE /HPF; APPEARANCE,URINE SLIGHTLY-CLOUDY; BILIRUBIN,URINE NEGATIVE (NEGATIVE); COLOR,URINE YELLOW; GLUCOSE, URINE NEGATIVE (NEGATIVE); KETONES,URINE NEGATIVE (NEGATIVE); LEUKOCYTE ESTERASE,URINE MODERATE (NEGATIVE); NITRITE,URINE NEGATIVE (NEGATIVE); PROTEIN,URINE 30 mg/dL (NEGATIVE); URINE SPECIFIC GRAVITY 1.011; UROBILINOGEN,URINE NEGATIVE mg/dL (<2.0)
[2019-04-16] MEDS ORDERED: NORMAL SALINE 1000 ML 1,000 ML IV ONE (12:24)
--- NOTE | 2019-04-16 12:26 | RADIOLOGY REPORT (SQ) ---
EXAM DESCRIPTION: CHEST SINGLE VIEW COMPLETED DATE/TIME: 04/16/2019 12:06 pm REASON FOR STUDY: sepsis COMPARISON: 10/10/2018 EXAM PARAMETERS: NUMBER OF VIEWS: One view. TECHNIQUE: Single frontal radiographic view of the chest acquired. RADIATION DOSE: NA LIMITATIONS: None. FINDINGS: LUNGS AND PLEURA: No opacities, masses or pneumothorax. No pleural effusion. MEDIASTINUM AND HILAR STRUCTURES: No masses. Contour normal. HEART AND VASCULAR STRUCTURES: Enlarged cardiac silhouette with central vascular congestion. No over t edema. BONES: No acute findings. HARDWARE: Sternotomy hardware. OTHER: No other significant finding. IMPRESSION: Stable enlarged cardiac silhouette and central vascular congestion. TECHNICAL DOCUMENTATION: JOB ID: [id number] 2010 [employer]- All Rights Reserved Reading location - IP/workstation name: [email or web address]
--- NOTE | 2019-04-16 12:40 | RADIOLOGY REPORT (SQ) ---
EXAM DESCRIPTION: KUB/ABDOMEN (SINGLE VIEW) COMPLETED DATE/TIME: 04/16/2019 12:26 pm REASON FOR STUDY: septic COMPARISON: None. NUMBER OF VIEWS: One view. TECHNIQUE: Supine radiographic image of the abdomen acquired. LIMITATIONS: None. FINDINGS: BOWEL GAS PATTERN: Normal bowel gas pattern. No dilated loops. CALCIFICATIONS: No radiopaque stones overlie kidneys or expected course of ureters. Scattered pelvic phleboliths. Vascular calcifications. SOFT TISSUES: No gross mass or suggestion of organomegaly. HARDWARE: Cholecystectomy clips. Surgical clip overlies pelvis. BONES: No acute findings. Multilevel spondylosis. OTHER: No other significant finding. IMPRESSION: NO RADIOGRAPHIC EVIDENCE FOR ACUTE ABDOMINAL DISEASE. TECHNICAL DOCUMENTATION: JOB ID: [id number] 2010 [employer]- All Rights Reserved Reading location - IP/workstation name: [email or web address]
[2019-04-16 13:00] LABS: ARTERIAL BLOOD BASE EXCESS -5.8 mmol/L; ARTERIAL BLOOD H2CO3 1.38 mmol/L (1.05-1.35); ARTERIAL BLOOD HCO3 20.9 mmol/L (20-24); ARTERIAL BLOOD O2 SATURATION 95.4 % (94-98); ARTERIAL BLOOD PH 7.28 (7.35-7.45); ARTERIAL BLOOD PO2 86.5 mmHg (80-100); ARTERIAL BLOOD TOTAL CO2 22.3 mmol/L (23-27)
[2019-04-16 13:01] LABS: ARTERIAL BLOOD FIO2 2L
[2019-04-16] MEDS ORDERED: RINGERS SOLUTION,LACTATED 1,000 ML IV ONE (13:02)
[2019-04-16] MEDS: DOPAMINE HCL/DEXTROSE 5%-WATER 800 MG/250 ML RTUINJ IV PRN ×2 (13:12→21:00)
[2019-04-16] MEDS ORDERED: HYDROCORTISONE SOD SUCCINATE INJ/PF 100 MG/2 ML SDV ONE (13:19)
--- NOTE | 2019-04-16 13:29 | RADIOLOGY REPORT (SQ) ---
EXAM DESCRIPTION: CHEST SINGLE VIEW COMPLETED DATE/TIME: 04/16/2019 1:11 pm REASON FOR STUDY: sob COMPARISON: None. EXAM PARAMETERS: NUMBER OF VIEWS: One view. TECHNIQUE: Single frontal radiographic view of the chest acquired. RADIATION DOSE: NA LIMITATIONS: None. FINDINGS: LUNGS AND PLEURA: No opacities, masses or pneumothorax. No pleural effusion. MEDIASTINUM AND HILAR STRUCTURES: No masses. Contour normal. HEART AND VASCULAR STRUCTURES: Enlarged, stable. Central vascular congestion without overt edema. BONES: No acute findings. HARDWARE: Sternotomy wires. OTHER: No other significant finding. IMPRESSION: Stable large cardiac silhouette and central vascular congestion without overt edema. TECHNICAL DOCUMENTATION: JOB ID: [id number] 2011 [employer]- All Rights Reserved Reading location - IP/workstation name: [email or web address]
--- NOTE | 2019-04-16 13:55 | EKG REPORT ---
SEVERITY:- ABNORMAL ECG - SINUS RHYTHM ATRIAL PREMATURE COMPLEX PROBABLE INFERIOR INFARCT, OLD : Confirmed by: Jolly Chaudhry MD 16-Apr-2019 13:53:57
[2019-04-16] MEDS ORDERED: NORMAL SALINE 1000 ML 1,000 ML IV PRN (14:04)
[2019-04-16] MEDS ORDERED: DOPAMINE HCL/DEXTROSE 5%-WATER 800 MG/250 ML RTUINJ IV PRN (14:09)
--- NOTE | 2019-04-16 14:36 | CRITICAL CARE ADMISSION REPORT ---
HPI Date:: 04/16/19 Time:: 13:30 Reason for ICU Reason:: Hypotension, need for presors. ARF HPI: This patient is a 73 yo man living at a NH after a stroke in Sep 2018. He is an aspirator, hasm had near chronic diarhea since then. He presents hypotensive with dopamine started in the ED History obtained from:: Patient, , ED MD. - Diagnosis/Plan (1) Hypotension Qualifiers: Hypotension type: hypotension due to hypovolemia Qualified Code(s): I95.89 - Other hypotension; E86.1 - Hypovolemia Is this a current diagnosis for this admission?: Yes Plan: He is on dopamine at least temporarily until we can rehydrate him. (2) ARF (acute renal failure) Qualifiers: Acute renal failure type: unspecified Qualified Code(s): N17.9 - Acute ki dney failure, unspecified Is this a current diagnosis for this admission?: Yes Plan: His Cr is 4.3. And this is likely due to hypovolemia. Recheck labs. This should improve. He has no acidosis or hyperkalemia and therefore does not need HD. (3) CVA (cerebral vascular accident) Qualifiers: CVA mechanism: unspecified Qualified Code(s): I63.9 - Cerebral infarction, unspecified Is this a current diagnosis for this admission?: Yes Plan: This is old from last September. - . Plan Summary: Rehydrate, recheck labs, check cortisol. Dopamine temporarily. Past Medical History Cardiac Medical History: Reports: Coronary Artery Disease, Hyperlipidema, Hypertension Denies: Myocardial Infarction Pulmonary Medical History: Reports: Asthma, Chronic Obstructive Pulmonary Disease (COPD), Pneumonia - BABY., Sleep Apnea Denies: Bronchitis Neurological Medical History: Denies: Seizures Endocrine Medical History: Reports: Diabetes Mellitus Type 2 GI Medical History: Reports: Hiatal Hernia Denies: Hepatitis Musculoskeltal Medical History: Reports: Arthritis Psychiatric Medical History: Reports: Post Traumatic Stress Disorder Hematology: Denies: Anemia, Sickle Cell Disease Past Surgical History Past Surgical History: Reports: Cholecystectomy, Coronary Artery Bypass Graft, Orthopedic Surgery - left wrist, left foot Denies: Pacemaker Social/Family History - Social History Smoking Status: Unknown if Ever Smoked Frequency of Alcohol Use: None Hx Recreational Drug Use: No Drugs: None Hx Prescription Drug Abuse: No - Medication/Allergies Home Medications: Aspirin 81 mg PO DAILY 09/26/15 Clonazepam [Klonopin] 0.5 mg PO QHS 09/26/15 Omeprazole 20 mg PO DAILY 09/26/15 Oxcarbazepine [Trileptal] 600 mg PO Q12 09/26/15 Solifenacin Succinate [Vesicare] 5 mg PO HSP PRN 09/26/15 Hydralazine HCl [Apresoline 50 mg Tablet] 50 mg PO Q12 01/17/16 Cyclobenzaprine HCl [Flexeril 5 mg Tablet] 5 mg PO DAILYP PRN 09/18/18 Linagliptin [Tradjenta] 5 mg PO DAILY 09/18/18 Memantine HCl/Donepezil HCl [Namzaric 28 mg-10 mg Capsule] 1 cap PO QHS 09/18/18 Metoprolol Tartrate [Lopressor 50 mg Tablet] 50 mg PO DAILY 09/18/18 Atorvastatin Calcium [Lipitor 80 mg Tablet] 80 mg PO QHS #30 tablet 09/23/18 Tamsulosin HCl [Flomax 0.4 mg Cap.sr] 0.4 mg PO DAILY #7 cap.sr.24h 09/23/18 Amlodipine Besylate [Norvasc 10 mg Tablet] 10 mg PO DAILY 04/16/19 Dextromethorphan HBr/Quinidine [Nuedexta 20-10 mg Capsule] 1 each PO BID 04/16/19 Glucagon [Gvoke Syringe] 1 mg SQ ASDIR PRN 04/16/19 Ipratropium/Albuterol Sulfate [Duoneb 3 ml Ampul] 3 ml NEB TID 04/16/19 Loperamide HCl [Imodium 2 mg Capsule] 2 mg PO Q6HP PRN 04/16/19 Losartan Potassium [Cozaar 50 mg Tablet] 50 mg PO DAILY 04/16/19 Melatonin [Melatonin 3 mg Tablet] 3 mg PO QHS 04/16/19 Vits A,C,E/Lutein/Minerals [Ocuvite with Lutein Tablet] 1 each PO QAM 04/16/19 Allergies/Adverse Reactions: No Known Allergies Allergy (Verified 04/12/16 16:56) Review of Systems ROS unobtainable: Due to mental status Physical Exam Vital Signs: Temp Pulse Resp BP Pulse Ox 98.4 F 17 78/33 L 97 04/16/19 10:52 04/16/19 13:01 04/16/19 13:01 04/16/19 13:01 Intake & Output 04/15/19 04/16/19 04/17/19 06:59 06:59 06:59 Intake Total 3000 Balance 3000 Weight 234.5 kg Weight/Height Weight 234.5 kg Height 6 ft General appearance: PRESENT: no acute distress Head exam: PRESENT: atraumatic, normocephalic Eye exam: PRESENT: conjunctiva pink, EOMI, PERRLA. ABSENT: scleral icterus Ear exam: PRESENT: bleeding Mouth exam: PRESENT: dry mucosa Respiratory exam: PRESENT: clear to auscultation german, crackles - Crasckles at R base.. ABSENT: rales, rhonchi, wheezes Cardiovascular exam: PRESENT: RRR. ABSENT: diastolic murmur, rubs, systolic murmur GI/Abdominal exam: PRESENT: normal bowel sounds, soft. ABSENT: distended, guarding, mass, organolmegaly, rebound, tenderness Rectal exam: PRESENT: deferred Gentrourinary exam: PRESENT: indwelling catheter Extremities exam: PRESENT: full ROM. ABSENT: calf tenderness, clubbing, pedal edema Neurological exam: PRESENT: altered, awake, oriented to person Skin exam: PRESENT: dry, intact, warm. ABSENT: cyanosis, rash Tubes/Lines: PRESENT: Central Line Laboratory/Radiographs Laboratory Results: 04/16/19 11:00 04/16/19 11:00 04/16/19 04/16/19 04/16/19 10:49 11:00 11:00 WBC 12.6 H RBC 4.08 L Hgb 12.3 L Hct 35.7 L MCV 88 MCH 30.2 MCHC 34.4 RDW 16.4 H Plt Count 286 Seg Neutrophils % 74.6 Carbonic Acid HCO3/H2CO3 Ratio ABG pH ABG pCO2 ABG pO2 ABG HCO3 ABG O2 Saturation ABG Base Excess FiO2 Sodium 128.6 L Potassium 4.5 Chloride 89 L Carbon Dioxide 25 Anion Gap 15 BUN 45 H Creatinine 4.26 H Est GFR ( Amer) 17 L Glucose 116 H Lactic Acid 1.9 Calcium 8.9 Total Bilirubin 0.7 AST 21 Alkaline Phosphatase 62 Total Protein 7.1 Albumin 3.8 Urine Color Urine Appearance Urine pH Ur Specific [place] Urine Protein Urine Glucose (UA) Urine Ketones Urine Blood Urine Nitrite Ur Leukocyte Esterase Urine WBC (Auto) Urine RBC (Auto) 04/16/19 04/16/19 11:55 12:45 WBC RBC Hgb Hct MCV MCH MCHC RDW Plt Count Seg Neutrophils % Carbonic Acid 1.38 H HCO3/H2CO3 Ratio 15:1 ABG pH 7.28 L ABG pCO2 46.0 H ABG pO2 86.5 ABG HCO3 20.9 ABG O2 Saturation 95.4 ABG Base Excess -5.8 FiO2 2L Sodium Potassium Chloride Carbon Dioxide Anion Gap BUN Creatinine Est GFR ( Amer) Glucose Lactic Acid Calcium Total Bilirubin AST Alkaline Phosphatase Total Protein Albumin Urine Color YELLOW Urine Appearance SLIGHTLY-CLOUDY Urine pH 7.0 Ur Specific [place] 1.011 Urine Protein 30 H Urine Glucose (UA) NEGATIVE Urine Ketones NEGATIVE Urine Blood SMALL H Urine Nitrite NEGATIVE Ur Leukocyte Esterase MODERATE H Urine WBC (Auto) 118 Urine RBC (Auto) 67 04/16/19 04/16/19 11:00 11:00 Creatine Kinase 39 L CK-MB (CK-2) 1.76 Troponin I 0.017 Impressions: KUB X-Ray 04/16/19 11:25 IMPRESSION: NO RADIOGRAPHIC EVIDENCE FOR ACUTE ABDOMINAL DISEASE. Chest X-Ray 04/16/19 12:48 IMPRESSION: Stable large cardiac silhouette and central vascular congestion without overt edema. EKG: NSR All labs, radiographs, diagnostic studies and EKGs were personally reviewed: Yes In addition, reports of radiographic and diagnostic studies were read: Yes Critical Time Critical Time (minutes): 40 -: The care of a critically ill patient is dynamic. This note represents a static moment in the admission process. Orders and treatments may be given simultaneously and urgently, and time is not human resources hr representative of the treatment process. This patient requires Critical Care secondary to life threatening organ or limb dysfunction. Without Critical Care services, the patient is at risk for increased mortality and morbidity.
--- NOTE | 2019-04-16 14:37 | Operative Report ---
Bedside Procedure - History of Present Illness History of Present Illness: This patient is a 73 yo man living at a NH after a stroke in Sep 2018. He is an aspirator, hasm had near chronic diarhea since then. He presents hypotensive with dopamine started in the ED Indication for Procedure: Need for pressors Date: 04/16/19 Provider: RUDDY MCFARLANE - Central Line Right Internal jugular Time completed: 14:00 Central line pre-insertion: Sterile PPE donned, Chloraprep applied, Sterile drapes applied Central line lumen type: Triple Anesthetic type: 1% Lidocaine mL's of anesthesia: 3 Ultrasound guided: No Line secured with sutures: Yes Central line post-insertion: Blood return from lumens, Biopatch applied, Sutured, Sterile dressing applied, Position confirmed w/ CXR Complications: No
--- NOTE | 2019-04-16 14:47 | RADIOLOGY REPORT (SQ) ---
EXAM DESCRIPTION: CHEST SINGLE VIEW COMPLETED DATE/TIME: 04/16/2019 2:27 pm REASON FOR STUDY: central line confirmation COMPARISON: 04/16/2019 EXAM PARAMETERS: NUMBER OF VIEWS: One view. TECHNIQUE: Single frontal radiographic view of the chest acquired. RADIATION DOSE: NA LIMITATIONS: None. FINDINGS: LUNGS AND PLEURA: No opacities, masses or pneumothorax. No pleural effusion. MEDIASTINUM AND HILAR STRUCTURES: No masses. Contour normal. HEART AND VASCULAR STRUCTURES: Enlarged, stable. Central vascular congestion. BONES: No acute findings. HARDWARE: Sternotomy hardware. New right internal jugular central venous catheter with tip at right atrium. OTHER: No other significant finding. IMPRESSION: New right internal jugular central venous catheter with tip at right atrium. No pneumot horax. Stable enlarged cardiac silhouette and central vascular congestion. TECHNICAL DOCUMENTATION: JOB ID: [id number] 2010 [employer]- All Rights Reserved Reading location - IP/workstation name: [email or web address]
[2019-04-16 15:20] LABS: C DIFFICILE GDH NEGATIVE (NEGATIVE)
[2019-04-16] MEDS: HEPARIN SOD (PORCINE) 5,000 UNIT/ML 1 ML VIAL SUBCUT SCH ×2 (15:22→22:14)
[2019-04-16] MEDS ORDERED: CALCIUM GLUCONATE 1000 MG/10 ML INJ IV ONE (17:25)
[2019-04-16] MEDS ORDERED: LOPERAMIDE HCL 2 MG CAPSULE PO PRN (17:25)
[2019-04-16] MEDS ORDERED: IPRATROPIUM/ALBUTEROL 0.5-2.5 MG/3 ML AMPUL NEB SCH (18:00)
[2019-04-16] MEDS: IPRATROPIUM/ALBUTEROL 0.5-2.5 MG/3 ML AMPUL NEB SCH (19:43)
[2019-04-16] MEDS ORDERED: INFLUENZA QUAD (6MOS+) 2019-20 VAC 0.5 ML SYR IM ONE (19:48)
[2019-04-16] MEDS: RINGERS SOLUTION,LACTATED 1,000 ML IV PRN (21:00)
[2019-04-16] MEDS ORDERED: DEXTROSE 40% GEL 15 GM TUBE PO PRN ×2 (21:54)
[2019-04-16] MEDS ORDERED: DEXTROSE 50%-WATER 25 GM/50 ML DISP.SYRIN IV PRN ×2 (21:54)
[2019-04-16] MEDS ORDERED: GLUCAGON,HUMAN RECOMB 1 MG INJ SUBCUT PRN (21:54)
[2019-04-16] MEDS ORDERED: (PENDING PHARMACY ID) (Memantine Hcl/Donepezil Hcl [Namzaric 28 Mg-10 Mg Capsule] 1 CAP) PO SCH (22:00)
[2019-04-16] MEDS ORDERED: (PENDING PHARMACY ID) (Oxcarbazepine [Trileptal] 600 MG) PO SCH (22:00)
[2019-04-16] MEDS: HYDROCORTISONE SOD SUCCINATE INJ/PF 100 MG/2 ML SDV IV SCH (22:14)
[2019-04-16] MEDS: OXCARBAZEPINE 150 MG TABLET PO SCH (22:14)
[2019-04-16] MEDS: ATORVASTATIN CALCIUM 80 MG TABLET PO SCH (22:23)
[2019-04-16] MEDS: MELATONIN 3 MG TABLET PO SCH (22:32)
[2019-04-17] MEDS ORDERED: GLUCAGON,HUMAN RECOMB 1 MG INJ IM PRN (01:16)
[2019-04-17] MEDS ORDERED: DEXTROSE 50%-WATER 25 GM/50 ML DISP.SYRIN IV PRN ×2 (01:16)
[2019-04-17] MEDS ORDERED: DEXTROSE 40% GEL 15 GM TUBE PO PRN ×2 (01:16)
[2019-04-17] MEDS: RINGERS SOLUTION,LACTATED 1,000 ML IV PRN ×2 (06:00→17:55)
[2019-04-17] MEDS: HEPARIN SOD (PORCINE) 5,000 UNIT/ML 1 ML VIAL SUBCUT SCH ×3 (06:02→22:02)
[2019-04-17] MEDS: HYDROCORTISONE SOD SUCCINATE INJ/PF 100 MG/2 ML SDV IV SCH ×3 (06:02→22:02)
[2019-04-17 06:32] LABS: ABSOLUTE LYMPHOCYTES (AUTO) 1.1 10^3/uL (0.5-4.7); ABSOLUTE MONOCYTES (AUTO) 0.9 10^3/uL (0.1-1.4); ABSOLUTE NEUT (AUTO) 7.8 10^3/uL (1.7-8.2); BASOPHILS % (AUTO) 0.2 % (0-2); EOSINOPHILS % (AUTO) 0.1 % (0-6); HEMATOCRIT 35.4 % (37.9-51.0); HEMOGLOBIN 12.1 g/dL (13.5-17.0); MEAN CORPUSCULAR HEMOGLOBIN 30.2 pg (27.0-33.4); MEAN CORPUSCULAR HGB CONC 34.3 g/dL (32.0-36.0); MEAN CORPUSCULAR VOLUME 88 fl (80-97); MONOCYTES % (AUTO) 9.1 % (3-13); PLATELET COUNT 256 10^3/uL (150-450); RED BLOOD COUNT 4.01 10^6/uL (4.35-5.55); SEGMENTED NEUTROPHILS % (AUTO) 79.6 % (42-78); TOTAL CELLS COUNTED % (AUTO) 100 %; WHITE BLOOD COUNT 9.8 10^3/uL (4.0-10.5)
[2019-04-17] MEDS: INSULIN REG, HUMAN 100 UNIT/ML 3 ML VIAL (PYX) SUBCUT SCH ×3 (06:40→17:54)
[2019-04-17 07:09] LABS: ALBUMIN 3.2 g/dL (3.5-5.0); ALKALINE PHOSPHATASE 60 U/L (38-126); ANION GAP 9 (5-19); ASPARTATE AMINO TRANSFERASE 18 U/L (17-59); BILIRUBIN,TOTAL 0.3 mg/dL (0.2-1.3); BLOOD UREA NITROGEN 36 mg/dL (7-20); CALCIUM 8.8 mg/dL (8.4-10.2); CARBON DIOXIDE 23 mmol/L (22-30); CHLORIDE 100 mmol/L (98-107); GLUCOSE 140 mg/dL (75-110); POTASSIUM 4.6 mmol/L (3.6-5.0); TOTAL PROTEIN 5.8 g/dL (6.3-8.2)
--- NOTE | 2019-04-17 08:02 | PDOC CRITICAL CARE PROG REPORT ---
General Date:: 04/17/19 ICU Day:: 2 Hospital Day:: 2 Resuscitation Status: Full Code Events in the past 12 to 24 Hours:: Better hydration, kidney function improved. Review of systems relevant to events:: Neurologic, CV and renal. Reason for ICU Addmission:: Hypotension, need for presors. ARF - Medications: Medications reviewed and adjusted accordingly: Yes Vasopressors:: Dopamine Sedation:: None Physical Exam Vital Signs: Temp Pulse Resp BP Pulse Ox 97.2 F 69 18 96/47 L 97 04/17/19 05:15 04/16/19 20:00 04/17/19 06:24 04/17/19 06:24 04/17/19 06:24 Intake & Output 04/16/19 04/17/19 04/18/19 06:59 06:59 06:59 Intake Total 5487 Output Total 2720 Balance 2767 Weight 100.5 kg Weight/Height Weight 100.5 kg Height 6 ft General appearance: PRESENT: no acute distress, well-developed, well-nourished Head exam: PRESENT: atraumatic, normocephalic Eye exam: PRESENT: conjunctiva pink, EOMI, PERRLA. ABSENT: scleral icterus Ear exam: PRESENT: normal external ear exam Mouth exam: PRESENT: dry mucosa Neck exam: ABSENT: carotid bruit, JVD, lymphadenopathy, thyromegaly Respiratory exam: PRESENT: clear to auscultation german, decreased breath sounds. ABSENT: rales, rhonchi, wheezes Cardiovascular exam: PRESENT: RRR. ABSENT: diastolic murmur, rubs, systolic murmur GI/Abdominal exam: PRESENT: normal bowel sounds, soft. ABSENT: distended, guar ding, mass, organolmegaly, rebound, tenderness Rectal exam: PRESENT: deferred Gentrourinary exam: PRESENT: indwelling catheter Extremities exam: PRESENT: full ROM. ABSENT: calf tenderness, clubbing, pedal edema Musculoskeletal exam: PRESENT: normal inspection Neurological exam: PRESENT: alert, altered, awake, oriented to person, other - Still sleepy. Skin exam: PRESENT: dry, intact, warm. ABSENT: cyanosis, rash Laboratory/Radiographs Laboratory Results: 04/17/19 06:15 04/17/19 06:15 04/16/19 04/16/19 04/16/19 10:49 11:00 11:00 WBC 12.6 H RBC 4.08 L Hgb 12.3 L Hct 35.7 L MCV 88 MCH 30.2 MCHC 34.4 RDW 16.4 H Plt Count 286 Seg Neutrophils % 74.6 Carbonic Acid HCO3/H2CO3 Ratio ABG pH ABG pCO2 ABG pO2 ABG HCO3 ABG O2 Saturation ABG Base Excess FiO2 Sodium 128.6 L Potassium 4.5 Chloride 89 L Carbon Dioxide 25 Anion Gap 15 BUN 45 H Creatinine 4.26 H Est GFR ( Amer) 17 L Glucose 116 H Lactic Acid 1.9 Calcium 8.9 Total Bilirubin 0.7 AST 21 Alkaline Phosphatase 62 Total Protein 7.1 Albumin 3.8 Urine Color Urine Appearance Urine pH Ur Specific [place] Urine Protein Urine Glucose (UA) Urine Ketones Urine Blood Urine Nitrite Ur Leukocyte Esterase Urine WBC (Auto) Urine RBC (Auto) 04/16/19 04/16/19 04/17/19 11:55 12:45 06:15 WBC 9.8 RBC 4.01 L Hgb 12.1 L Hct 35.4 L MCV 88 MCH 30.2 MCHC 34.3 RDW 16.0 H Plt Count 256 Seg Neutrophils % 79.6 H Carbonic Acid 1.38 H HCO3/H2CO3 Ratio 15:1 ABG pH 7.28 L ABG pCO2 46.0 H ABG pO2 86.5 ABG HCO3 20.9 ABG O2 Saturation 95.4 ABG Base Excess -5.8 FiO2 2L Sodium Potassium Chloride Carbon Dioxide Anion Gap BUN Creatinine Est GFR ( Amer) Glucose Lactic Acid Calcium Total Bilirubin AST Alkaline Phosphatase Total Protein Albumin Urine Color YELLOW Urine Appearance SLIGHTLY-CLOUDY Urine pH 7.0 Ur Specific [place] 1.011 Urine Protein 30 H Urine Glucose (UA) NEGATIVE Urine Ketones NEGATIVE Urine Blood SMALL H Urine Nitrite NEGATIVE Ur Leukocyte Esterase MODERATE H Urine WBC (Auto) 118 Urine RBC (Auto) 67 04/17/19 06:15 WBC RBC Hgb Hct MCV MCH MCHC RDW Plt Count Seg Neutrophils % Carbonic Acid HCO3/H2CO3 Ratio ABG pH ABG pCO2 ABG pO2 ABG HCO3 ABG O2 Saturation ABG Base Excess FiO2 Sodium 131.8 L Potassium 4.6 Chloride 100 Carbon Dioxide 23 Anion Gap 9 BUN 36 H Creatinine 1.31 H Est GFR ( Amer) > 60 Glucose 140 H Lactic Acid Calcium 8.8 Total Bilirubin 0.3 AST 18 Alkaline Phosphatase 60 Total Protein 5.8 L Albumin 3.2 L Urine Color Urine Appearance Urine pH Ur Specific [place] Urine Protein Urine Glucose (UA) Urine Ketones Urine Blood Urine Nitrite Ur Leukocyte Esterase Urine WBC (Auto) Urine RBC (Auto) 04/16/19 04/16/19 11:00 11:00 Creatine Kinase 39 L CK-MB (CK-2) 1.76 Troponin I 0.017 Impressions: KUB X-Ray 04/16/19 11:25 IMPRESSION: NO RADIOGRAPHIC EVIDENCE FOR ACUTE ABDOMINAL DISEASE. Chest X-Ray 04/16/19 12:48 IMPRESSION: Stable large cardiac silhouette and central vascular congestion without overt edema. EKG: Somewhat bradycardic even on dopamine. All labs, radiographs, diagnostic studies and EKGs were personally reviewed: Yes In addition, reports of radiographic and diagnostic studies were read: Yes Assessment and Plan - Diagnosis (1) Hypotension Qualifiers: Hypotension type: hypotension due to hypovolemia Qualified Code(s): I95.89 - Other hypotension; E86.1 - Hypovolemia Is this a current diagnosis for this admission?: Yes Plan: Improved with hydration. Will begin titrating dopamine off. (2) ARF (acute renal failure) Qualifiers: Acute renal failure type: unspecified Qualified Code(s): N17.9 - Acute kidney failure, unspecified Is this a current diagnosis for this admission?: Yes Plan: Improved and nearly resolved. (3) CVA (cerebral vascular accident) Qualifiers: CVA mechanism: unspecified Qualified Code(s): I63.9 - Cerebral infarction, unspecified Is this a current diagnosis for this admission?: Yes Plan: Old residual I doubt new at this point. Plan Summary: Cut back on IVF and try to wean dopamine. Critical Time Critical Time (minutes): 35 Level of Care: ICU Anticipated discharge: SNF Within: Other - Within a week. -: 1. The care of a critical patient is a dynamic process. This note is a fraud representative synopsis but static in nature. The timeframe for treatments given in order is not necessarily the actual time these treatments may have been done. 2. This patient requires critical care secondary to ongoing requirements for therapy not offered or safe outside the critical care environment. Transfer to a lower level of care will result in altered life or limb morbidity and mortality. 3. Multidisciplinary rounds completed. 4. ABCDE bundle addressed.
[2019-04-17] MEDS: IPRATROPIUM/ALBUTEROL 0.5-2.5 MG/3 ML AMPUL NEB SCH ×3 (08:27→19:58)
[2019-04-17] MEDS: PANTOPRAZOLE SODIUM 20 MG TABLET.DR PO SCH (11:00)
[2019-04-17] MEDS: ASPIRIN 81 MG TABLET, CHEWABLE PO SCH (11:00)
[2019-04-17] MEDS: OXCARBAZEPINE 150 MG TABLET PO SCH ×2 (11:00→22:02)
[2019-04-17] MEDS: LINEZOLID 600 MG/300 ML RTUPB IV SCH ×2 (11:26→22:01)
[2019-04-17] MEDS: TAMSULOSIN HCL 0.4 MG CAP.SR.24H PO SCH (11:31)
[2019-04-17] MEDS: MEMANTINE HCL 10 MG TABLET PO SCH (22:01)
[2019-04-17] MEDS: DONEPEZIL HCL 5 MG TABLET PO SCH (22:02)
[2019-04-17] MEDS: ATORVASTATIN CALCIUM 80 MG TABLET PO SCH (22:02)
[2019-04-17] MEDS: MELATONIN 3 MG TABLET PO SCH (22:02)
[2019-04-17] MEDS ORDERED: DIPHENHYDRAMINE HCL 50 MG/ML VIAL IV ONE (23:21)
[2019-04-17] MEDS ORDERED: DIPHENHYDRAMINE HCL 50 MG/ML VIAL ONE (23:25)
[2019-04-18] MEDS: INSULIN REG, HUMAN 100 UNIT/ML 3 ML VIAL (PYX) SUBCUT SCH ×4 (00:15→17:00)
[2019-04-18] MEDS: RINGERS SOLUTION,LACTATED 1,000 ML IV PRN (05:18)
[2019-04-18] MEDS: HYDROCORTISONE SOD SUCCINATE INJ/PF 100 MG/2 ML SDV IV SCH ×4 (05:19→23:41)
[2019-04-18] MEDS: HEPARIN SOD (PORCINE) 5,000 UNIT/ML 1 ML VIAL SUBCUT SCH ×3 (05:19→22:18)
[2019-04-18 05:41] LABS: ABSOLUTE LYMPHOCYTES (AUTO) 0.9 10^3/uL (0.5-4.7); ABSOLUTE MONOCYTES (AUTO) 0.7 10^3/uL (0.1-1.4); ABSOLUTE NEUT (AUTO) 4.6 10^3/uL (1.7-8.2); BASOPHILS % (AUTO) 0.2 % (0-2); HEMATOCRIT 29.8 % (37.9-51.0); HEMOGLOBIN 10.2 g/dL (13.5-17.0); LYMPHOCYTES % (AUTO) 14.9 % (13-45); MEAN CORPUSCULAR HEMOGLOBIN 30.2 pg (27.0-33.4); MEAN CORPUSCULAR HGB CONC 34.2 g/dL (32.0-36.0); MEAN CORPUSCULAR VOLUME 88 fl (80-97); PLATELET COUNT 247 10^3/uL (150-450); RED BLOOD COUNT 3.37 10^6/uL (4.35-5.55); RED CELL DISTRIBUTION WIDTH 15.7 % (11.5-14.0); SEGMENTED NEUTROPHILS % (AUTO) 73.9 % (42-78); TOTAL CELLS COUNTED % (AUTO) 100 %; WHITE BLOOD COUNT 6.3 10^3/uL (4.0-10.5)
[2019-04-18 06:09] LABS: ANION GAP 5 (5-19); BLOOD UREA NITROGEN 33 mg/dL (7-20); CALCIUM 8.6 mg/dL (8.4-10.2); CARBON DIOXIDE 25 mmol/L (22-30); CHLORIDE 103 mmol/L (98-107); GLUCOSE 116 mg/dL (75-110); POTASSIUM 4.2 mmol/L (3.6-5.0)
--- NOTE | 2019-04-18 07:25 | PDOC CRITICAL CARE PROG REPORT ---
General Date:: 04/18/19 Hospital Day:: 2 Resuscitation Status: Full Code Events in the past 12 to 24 Hours:: Kidney function back to normal. Eating drinking but getting delirious Review of systems relevant to events:: Neuro, renal. Reason for ICU Addmission:: Hypotension, need for presors. ARF all resolved - Medications: Medications reviewed and adjusted accordingly: Yes Vasopressors:: None Sedation:: None Physical Exam Vital Signs: Temp Pulse Resp BP Pulse Ox 99.1 F 66 17 141/111 H 91 L 04/18/19 03:41 04/18/19 03:41 04/18/19 05:12 04/18/19 05:12 04/18/19 03:41 Intake & Output 04/17/19 04/18/19 04/19/19 06:59 06:59 06:59 Intake Total 5487 2724 Output Total 2720 1625 Balance 2767 1099 Weight 100.5 kg 102.5 kg Weight/Height Weight 102.5 kg Height 6 ft General appearance: PRESENT: no acute distress, well-developed, well-nourished Head exam: PRESENT: atraumatic, normocephalic Eye exam: PRESENT: conjunctiva pink, EOMI, PERRLA. ABSENT: scleral icterus Ear exam: PRESENT: normal external ear exam Mouth exam: PRESENT: moist, tongue midline Respiratory exam: PRESENT: clear to auscultation german. ABSENT: rales, rhonchi, wheezes Cardiovascular exam: PRESENT: RRR. ABSENT: diastolic murmur, rubs, systolic murmur GI/Abdominal exam: PRESENT: normal bowel sounds, soft. ABSENT: distended, gu arding, mass, organolmegaly, rebound, tenderness Gentrourinary exam: PRESENT: indwelling catheter Extremities exam: PRESENT: full ROM. ABSENT: calf tenderness, clubbing, pedal edema Musculoskeletal exam: PRESENT: normal inspection Neurological exam: PRESENT: alert, altered, awake, oriented to person, other - Arousable, sleep wake cycle very disrupted. Skin exam: PRESENT: dry, intact, warm. ABSENT: cyanosis, rash Laboratory/Radiographs Laboratory Results: 04/18/19 05:20 04/18/19 05:20 04/17/19 04/18/19 04/18/19 16:45 05:20 05:20 WBC 6.3 RBC 3.37 L Hgb 10.2 L Hct 29.8 L MCV 88 MCH 30.2 MCHC 34.2 RDW 15.7 H Plt Count 247 Seg Neutrophils % 73.9 Sodium 133.2 L Potassium 4.2 Chloride 103 Carbon Dioxide 25 Anion Gap 5 BUN 33 H Creatinine 0.85 Est GFR ( Amer) > 60 Glucose 116 H Calcium 8.6 Stool for White Cells NO WBCs SEEN 04/16/19 11:00 Blood Blood Culture (PCR) - Final Staphylococcus Species 04/16/19 11:33 Blood Blood Culture (PCR) - Final Staphylococcus Species 04/16/19 04/16/19 11:00 11:00 Creatine Kinase 39 L CK-MB (CK-2) 1.76 Troponin I 0.017 Impressions: KUB X-Ray 04/16/19 11:25 IMPRESSION: NO RADIOGRAPHIC EVIDENCE FOR ACUTE ABDOMINAL DISEASE. Chest X-Ray 04/16/19 12:48 IMPRESSION: Stable large cardiac silhouette and central vascular congestion without overt edema. All labs, radiographs, diagnostic studies and EKGs were personally reviewed: Yes In addition, reports of radiographic and diagnostic studies were read: Yes Assessment and Plan - Diagnosis (1) Hypotension Qualifiers: Hypotension type: hypotension due to hypovolemia Qualified Code(s): I95.89 - Other hypotension; E86.1 - Hypovolemia Is this a current diagnosis for this admission?: Yes Plan: Resolved (2) ARF (acute renal failure) Qualifiers: Acute renal failure type: unspecified Qualified Code(s): N17.9 - Acute kidney failure, unspecified Is this a current diagnosis for this admission?: Yes Plan: Resolved (3) CVA (cerebral vascular accident) Qualifiers: CVA mechanism: unspecified Qualified Code(s): I63.9 - Cerebral infarction, unspecified Is this a current diagnosis for this admission?: Yes Plan: Chronic (4) Bacteremia Is this a current diagnosis for this admission?: Yes Plan: Final culture is non-MRSA staph. May be contaminent, change zyvox to PO. Plan Summary: If patients mental status is back to normal may discharge. Critical Time Critical Time (minutes): 25 Level of Care: IMCU Anticipated discharge: Home, SNF Within: within 24 hours, within 36 hours -: 1. The care of a critical patient is a dynamic process. This note is a player services representative synopsis but static in nature. The timeframe for treatments given in order is not necessarily the actual time these treatments may have been done. 2. This patient requires critical care secondary to ongoing requirements for therapy not offered or safe outside the critical care environment. Transfer to a lower level of care will result in altered life or limb morbidity and mortality. 3. Multidisciplinary rounds completed. 4. ABCDE bundle addressed.
[2019-04-18] MEDS: IPRATROPIUM/ALBUTEROL 0.5-2.5 MG/3 ML AMPUL NEB SCH ×3 (07:52→19:58)
[2019-04-18] MEDS: LINEZOLID 600 MG/300 ML RTUPB IV SCH (11:30)
[2019-04-18] MEDS: TAMSULOSIN HCL 0.4 MG CAP.SR.24H PO SCH (11:51)
[2019-04-18] MEDS: PANTOPRAZOLE SODIUM 20 MG TABLET.DR PO SCH (11:51)
[2019-04-18] MEDS: OXCARBAZEPINE 150 MG TABLET PO SCH ×2 (11:51→22:19)
[2019-04-18] MEDS: ASPIRIN 81 MG TABLET, CHEWABLE PO SCH (11:51)
--- NOTE | 2019-04-18 16:28 | PDOC PROGRESS REPORT ---
Subjective Progress Note for:: 04/18/19 Subjective:: ICU downgrade to IMCU Received signout from specialty finishing utility person. 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 Patient was noted to be in hypovolemic shock and was admitted to the ICU for pressors. He was on Levophed for a short while with blood pressure responded appropriately. Received IV fluid hydration. Patient was also started on antibiotics with Zyvox after blood cultures became positive for gram-positive cocci eventually resulted as methicillin sensitive staph epidermidis. Infectious work-up including chest x-ray and urine culture were negative. Patient noted to be a chronic aspirator and a modified barium swallow study has been ordered. Patient has been off Levophed and is stable or being transferred to the medical floor for further care. At this time, patient denies any pain, shortness of breath, fever or chills. Patient is disoriented and thinks he lives with his even though he was [facility]. He does not have any complaints at the moment. Reason For Visit: HYPOTENSION, ARF, DEHYDRATION, ASPIRATION Physical Exam Vital Signs: Temp Pulse Resp BP Pulse Ox 99.1 F 86 21 H 154/53 H 97 04/18/19 12:00 04/18/19 08:00 04/18/19 14:00 04/18/19 12:24 04/18/19 12:00 Intake & Output 04/17/19 04/18/19 04/19/19 06:59 06:59 06:59 Intake Total 5487 2724 1800 Output Total 2720 1625 325 Balance 2767 1099 1475 Weight 100.5 kg 102.5 kg General appearance: PRESENT: no acute distress, cooperative Respiratory exam: PRESENT: symmetrical, unlabored. ABSENT: tachypnea, wheezes Cardiovascular exam: PRESENT: +S1, +S2 GI/Abdominal exam: PRESENT: soft. ABSENT: rebound, rigid, tenderness Neurological exam: PRESENT: alert, awake, oriented to person, oriented to place, oriented to time, motor sensory deficit - 4/5 strength in left upper and left lower extremity, facial deviation, dysarthria, 5/5 strength in right upper and lower extremities Results Laboratory Results: 04/18/19 05:20 04/18/19 05:20 04/17/19 04/18/19 04/18/19 16:45 05:20 05:20 WBC 6.3 RBC 3.37 L Hgb 10.2 L Hct 29.8 L MCV 88 MCH 30.2 MCHC 34.2 RDW 15.7 H Plt Count 247 Seg Neutrophils % 73.9 Sodium 133.2 L Potassium 4.2 Chloride 103 Carbon Dioxide 25 Anion Gap 5 BUN 33 H Creatinine 0.85 Est GFR ( Amer) > 60 Glucose 116 H Calcium 8.6 Stool for White Cells NO WBCs SEEN 04/16/19 11:55 Catheterized Urine Urine Culture - Final NO GROWTH 2 DAYS 04/16/19 11:33 Blood Blood Culture (PCR) - Final Staphylococcus Species 04/16/19 11:00 Blood Blood Culture (PCR) - Final Staphylococcus Species 04/16/19 04/16/19 11:00 11:00 Creatine Kinase 39 L CK-MB (CK-2) 1.76 Troponin I 0.017 Impressions: KUB X-Ray 04/16/19 11:25 IMPRESSION: NO RADIOGRAPHIC EVIDENCE FOR ACUTE ABDOMINAL DISEASE. Chest X-Ray 04/16/19 12:48 IMPRESSION: Stable large cardiac silhouette and central vascular congestion without overt edema. Assessment and Plan - Diagnosis (1) Hypotension Qualifiers: Hypotension type: hypotension due to hypovolemia Qualified Code(s): I95.89 - Other hypotension; E86.1 - Hypovolemia Is this a current diagnosis for this admission?: Yes Plan: Thought to be secondary to hypovolemia. Hypovolemic shock has currently resolved. Hypotension has resolved and patient is actually getting somewhat hypertensive. Will monitor blood pressure today and restart patient on antihypertensives tomorrow if BP tolerates. (2) ARF (acute renal failure) Qualifiers: Acute renal failure type: unspecified Qualified Code(s): N17.9 - Acute kidney failure, unspecified Is this a current diagnosis for this admission?: Yes Plan: Renal function now back to baseline following IV fluids (3) Positive blood culture Is this a current diagnosis for this admission?: Yes Plan: Patient on Zyvox when in ICU. Blood cultures are resulted to be methicillin sensitive coagulase-negative staph in 1 bottle each from both sets. Will transition from Zyvox to Augmentin. Likely contaminant but will go ahead and treat his from both sides to complete duration of 10 days. Repeat blood cultures today. (4) Aspiration into airway Qualifiers: Encounter type: initial encounter Qualified Code(s): T17.908A - Unspecified foreign body in respiratory tract, part unspecified causing other injury, initial encounter Is this a current diagnosis for this admission?: Yes Plan: Scheduled for swallow study tomorrow. Patient seems to chronically aspirate secondary to his stroke even when not eating. This is likely his unfixable baseline. (5) CVA (cerebral vascular accident) Qualifiers: CVA mechanism: unspecified Qualified Code(s): I63.9 - Cerebral infarction, unspecified Is this a current diagnosis for this admission?: Yes Plan: History of prior CVA. Has residual left-sided weakness as well as facial droop and dysarthria. Atorvastatin and aspirin. (6) DM type 2 (diabetes mellitus, type 2) Qualifiers: Diabetes mellitus rn long term care insulin use: without rn long term care use Is this a current diagnosis for this admission?: Yes Plan: Sliding scale insulin Accu-Cheks (7) Dementia Qualifiers: Dementia type: unspecified type Dementia behavioral disturbance: with behavioral disturbance Qualified Code(s): F03.91 - Unspecified dementia with behavioral disturbance Is this a current diagnosis for this admission?: Yes Plan: Redirection as needed (8) Hypertension Qualifiers: Hypertension type: essential hypertension Qualified Code(s): I10 - Essential (primary) hypertension Is this a current diagnosis for this admission?: Yes Plan: Restart blood pressure medications once BP sustained (9) Obesity (BMI 30.0-34.9) Is this a current diagnosis for this admission?: Yes - Time Time Spent with patient: 15-24 minutes
[2019-04-18] MEDS ORDERED: LOSARTAN POTASSIUM 50 MG TABLET PO ONE (17:37)
[2019-04-18] MEDS ORDERED: AMOXICILLIN TRIHYDRATE 500 MG CAPSULE PO SCH (22:00)
[2019-04-18] MEDS: ATORVASTATIN CALCIUM 80 MG TABLET PO SCH (22:18)
[2019-04-18] MEDS: AMOXICILLIN TR/POT CLAVULANATE 500-125 MG TAB PO SCH (22:18)
[2019-04-18] MEDS: MEMANTINE HCL 10 MG TABLET PO SCH (22:18)
[2019-04-18] MEDS: MELATONIN 3 MG TABLET PO SCH (22:18)
[2019-04-18] MEDS: DONEPEZIL HCL 5 MG TABLET PO SCH (22:18)
[2019-04-18] MEDS: AMLODIPINE BESYLATE 10 MG TABLET PO SCH (22:18)
[2019-04-18] MEDS: ACETAMINOPHEN 325 MG TABLET PO PRN (23:20)
[2019-04-19] MEDS ORDERED: HYDRALAZINE HCL INJ/PF 20 MG/1 ML SDV IV PRN (00:25)
[2019-04-19] MEDS: INSULIN REG, HUMAN 100 UNIT/ML 3 ML VIAL (PYX) SUBCUT SCH ×2 (00:30→06:02)
[2019-04-19] MEDS: ACETAMINOPHEN 325 MG TABLET PO PRN (03:50)
[2019-04-19] MEDS: HYDROCORTISONE SOD SUCCINATE INJ/PF 100 MG/2 ML SDV IV SCH (05:52)
[2019-04-19] MEDS: HEPARIN SOD (PORCINE) 5,000 UNIT/ML 1 ML VIAL SUBCUT SCH ×3 (05:53→21:16)
[2019-04-19 06:12] LABS: ANION GAP 10 (5-19); BLOOD UREA NITROGEN 28 mg/dL (7-20); CALCIUM 8.9 mg/dL (8.4-10.2); CARBON DIOXIDE 26 mmol/L (22-30); CHLORIDE 100 mmol/L (98-107); GLUCOSE 212 mg/dL (75-110); POTASSIUM 4.2 mmol/L (3.6-5.0)
[2019-04-19] MEDS: IPRATROPIUM/ALBUTEROL 0.5-2.5 MG/3 ML AMPUL NEB SCH ×3 (07:36→21:18)
[2019-04-19] MEDS: INSULIN LISPRO 100 UNIT/ML 3 ML VIAL SUBCUT SCH ×4 (08:09→21:35)
--- NOTE | 2019-04-19 10:18 | PDOC PROGRESS REPORT ---
Subjective Progress Note for:: 04/19/19 Subjective:: Briefly, patient is a 73-year-old male with a history of CVA with residual left- sided deficit and dysarthria, diabetes mellitus type 2, hypertension, CAD COPD, who was initially admitted to the ICU a couple of days ago after presenting from a residential facility with hypotension. Patient was noted to be in hypovolemic shock and was admitted to the ICU for pressors. He was on Levophed for a short while with blood pressure responded appropriately. Received IV fluid hydration. Patient was also started on antibiotics with Zyvox after blood cultures became positive for gram-positive cocci eventually resulted as methicillin sensitive staph epidermidis. Infectious work-up including chest x- ray and urine culture were negative. Patient noted to be a chronic aspirator and a modified barium swallow study has been ordered. Patient has been off Levophed and is stable and was transferred to the medical floor yesterday for further care. 04/19/2019 Today, patient complains of suprapubic pain as well as some mild testicular pain. His is at bedside reports that he has been often complaining about suprapubic pain while at the residential facility [[facility]]. Patient noted to be incontinent. I obtained a bladder scan after patient voided which showed retention of over 800 cc of urine. Reason For Visit: HYPOTENSION, ARF, DEHYDRATION, ASPIRATION Physical Exam Vital Signs: Temp Pulse Resp BP Pulse Ox 97.4 F 103 H 18 158/89 H 95 04/19/19 08:08 04/19/19 08:08 04/19/19 08:08 04/19/19 08:08 04/19/19 08:08 Intake & Output 04/18/19 04/19/19 04/20/19 06:59 06:59 06:59 Intake Total 2724 1918 Output Total 1625 325 Balance 1099 1593 Weight 102.5 kg 105.2 kg General appearance: PRESENT: no acute distress, cooperative Neck exam: ABSENT: JVD Respiratory exam: PRESENT: clear to auscultation german, unlabored. ABSENT: tachypnea, wheezes Cardiovascular exam: PRESENT: RRR, +S1, +S2. ABSENT: tachycardia GI/Abdominal exam: PRESENT: distended - Over the suprapubic area, soft. ABSENT: firm, guarding, rebound, rigid, tenderness Neurological exam: PRESENT: alert, awake, oriented to person, oriented to place, motor sensory deficit - Left-sided weakness in upper and lower extremities, other - Dysarthric, facial deviation. ABSENT: oriented to time Results Laboratory Results: 04/18/19 05:20 04/19/19 04:55 04/19/19 04:55 Sodium 136.1 L Potassium 4.2 Chloride 100 Carbon Dioxide 26 Anion Gap 10 BUN 28 H Creatinine 1.07 Est GFR ( Amer) > 60 Glucose 212 H Calcium 8.9 04/16/19 11:55 Catheterized Urine Urine Culture - Final NO GROWTH 2 DAYS 04/16/19 11:33 Blood Blood Culture (PCR) - Final Staphylococcus Species 04/16/19 11:00 Blood Blood Culture (PCR) - Final Staphylococcus Species 04/16/19 04/16/19 11:00 11:00 Creatine Kinase 39 L CK-MB (CK-2) 1.76 Troponin I 0.017 Impressions: KUB X-Ray 04/16/19 11:25 IMPRESSION: NO RADIOGRAPHIC EVIDENCE FOR ACUTE ABDOMINAL DISEASE. Chest X-Ray 04/16/19 12:48 IMPRESSION: Stable large cardiac silhouette and central vascular congestion without overt edema. Assessment and Plan - Diagnosis (1) Hypertension Qualifiers: Hypertension type: essential hypertension Qualified Code(s): I10 - Essential (primary) hypertension Is this a current diagnosis for this admission?: Yes Plan: BP is now starting to run high now the hypotension has resolved. I have restarted all his blood pressure medications. I have also discontinued the stress dose hydrocortisone which was started in the ICU. Will monitor patient blood pressure through today off steroids for potential discharge to SNF tomorrow. (2) ARF (acute renal failure) Qualifiers: Acute renal failure type: unspecified Qualified Code(s): N17.9 - Acute kidney failure, unspecified Is this a current diagnosis for this admission?: Yes Plan: Creatinine was at 4 on admission but is currently normalized with IV fluids. However, today patient complained of suprapubic pain and was noted to have acute urinary retention retaining over 800 cc post void. Patient is already on Flomax. In light of recent TOMMY, I will place Chen and have patient follow-up with urology outpatient for repeat voiding trial. Urine culture on 04/16 was negative though was already on abx. (3) Positive blood culture Is this a current diagnosis for this admission?: Yes Plan: Patient on Zyvox when in ICU. Blood cultures are resulted to be methicillin sensitive coagulase-negative staph in 1 bottle each from both sets. I have transitioned from Zyvox to Augmentin. Possible contaminant but will continue treatment since from both sets for duration of 10 days. Repeat blood cultures obtained. (4) Aspiration into airway Qualifiers: Encounter type: initial encounter Qualified Code(s): T17.908A - Unspecified foreign body in respiratory tract, part unspecified causing other injury, initial encounter Is this a current diagnosis for this admission?: Yes Plan: Scheduled for swallow study today. Patient seems to chronically aspirate secondary to his stroke even when not eating. This is likely his unfixable baseline. (5) CVA (cerebral vascular accident) Qualifiers: CVA mechanism: unspecified Qualified Code(s): I63.9 - Cerebral infarction, unspecified Is this a current diagnosis for this admission?: Yes Plan: History of prior CVA. Has residual left-sided weakness as well as facial droop and dysarthria. Atorvastatin and aspirin. (6) DM type 2 (diabetes mellitus, type 2) Qualifiers: Diabetes mellitus intermediate designer insulin use: without custodial use Is this a current diagnosis for this admission?: Yes Plan: Sliding scale insulin Accu-Cheks (7) Dementia Qualifiers: Dementia type: unspecified type Dementia behavioral disturbance: with behavioral disturbance Qualified Code(s): F03.91 - Unspecified dementia with behavioral disturbance Is this a current diagnosis for this admission?: Yes Plan: Redirection as needed (8) Obesity (BMI 30.0-34.9) Is this a current diagnosis for this admission?: Yes (9) Hypotension Qualifiers: Hypotension type: hypotension due to hypovolemia Qualified Code(s): I95.89 - Other hypotension; E86.1 - Hypovolemia Is this a current diagnosis for this admission?: Yes Plan: Thought to be secondary to hypovolemic shock on admission. Currently resolved. - Time Time Spent with patient: 15-24 minutes
[2019-04-19] MEDS: OXCARBAZEPINE 150 MG TABLET PO SCH ×2 (10:50→21:15)
[2019-04-19] MEDS: TAMSULOSIN HCL 0.4 MG CAP.SR.24H PO SCH (10:50)
[2019-04-19] MEDS: LOSARTAN POTASSIUM 50 MG TABLET PO SCH (10:50)
[2019-04-19] MEDS: METOPROLOL TARTRATE 50 MG TABLET PO SCH (10:50)
[2019-04-19] MEDS: HYDRALAZINE HCL 50 MG TABLET PO SCH ×2 (10:50→21:15)
[2019-04-19] MEDS: ASPIRIN 81 MG TABLET, CHEWABLE PO SCH (10:50)
[2019-04-19] MEDS: AMOXICILLIN TR/POT CLAVULANATE 500-125 MG TAB PO SCH ×3 (10:51→21:15)
[2019-04-19] MEDS: PANTOPRAZOLE SODIUM 20 MG TABLET.DR PO SCH (10:51)
--- NOTE | 2019-04-19 10:53 | RADIOLOGY REPORT (SQ) ---
EXAM DESCRIPTION: COOKIE SWALLOW COMPLETED DATE/TIME: 04/19/2019 9:30 am REASON FOR STUDY: ?aspirationHistory CVA and aspiration Dysphasia COMPARISON: Modified barium swallow 09/21/2018 TECHNIQUE: Videofluoroscopic swallowing examination was performed in conjunction with speech patholo gy. Videofluoroscopic imaging was obtained and reviewed and these are the findings: RADIATION DOSE: 2 minutes 14 seconds of fluoroscopy was used. 1 images saved to PACS. LIMITATIONS: None FINDINGS: The patient was brought into the fluoro room and placed upright on a modified barium swall ow chair. The patient was then given multiple consistencies mixed with barium to swallow under live fluoroscopic video guidance. According to the Speech Pathologist there was laryngeal penetration and aspiration of thin liquids. IMPRESSION: LARYNGEAL PENETRATION AND ASPIRATION OF THIN LIQUIDS. PLEASE SEE SPEECH PATHOLOGIST REPO RT FOR OTHER FINDINGS AND RECOMMENDATIONS. COMMENT: Quality ID 145: Final reports for procedures using fluoroscopy that document radiation exp osure indices, or exposure time and number of fluorographic images (if radiation exposure indices are not available) TECHNICAL DOCUMENTATION: JOB ID: [id number] 2010 [employer]- All Rights Reserved Reading location - IP/workstation name: [email or web address] [id number]
--- NOTE | 2019-04-19 11:22 | ST Inp Modified Barium Swallow ---
Medical Diagnosis - Medical Diagnoses Medical Diagnosis Description & ICD-10 Code(s): aspiration, CVA - ICD-10 Tx Diagnosis Coding (1) Dysphagia ICD-10 Code(s): R13.10 - DYSPHAGIA, UNSPECIFIED ST Inpatient MBS - General Date: 04/19/19 - History -: Medical - per EMr: patient admitted 04/16 from nursing home facility due to change in status. Patient had a CVA in September of 2018. At that time, a MBSS was completed, which showed aspiration of thin liquids. [place] liquids and mechanical soft, ground meats were recommended at that time and dysphagia therapy. Per patient's , patient was completing speech therapy at the SNF. Medications: Medications Reviewed Allergies: No known allergies - Subjective Current Nutritional Means: PO Current PO Diet: Mechanical- ground, Thickened liquids - nectar Current Symptoms: Aspiration Pain: Patient reports, 0/5 - Objective Assessment: Upright, Left Lateral - Food Trials Food Trials Used: Thin liquids, [place] thick liquids, Pureed, Regular The Patient: Required Assist - Assessment Labial Function: Within Functional Limits Lingual Function: Within Functional Limits Mandibular Function: Within Functional Limits Velo-Pharyngeal Function: Unremarkable Laryngeal Function: clear voicing - Pharyngeal Stage Initiation of Pharyngeal Stage: Delayed - spillage into valleculae and into pyriform with liquid trials prior to swallow initiation Decreased Laryngeal Elevation: No Reduced Velo-Pharyngeal Closure: no Reduced Pressure Generation: No Reduced Tongue Base Retraction: No Pre-Swallowing Pooling in Valleculae: Significant Pre-Swallowing Pooling in Pyriforms: Moderate Reduced Thyro-Hyiod Approximation: No Reduced Epiglottic Excursion: No Reduced Pharyngeal Peristalsis: No Post Swallow Residuals in Valleculae: Mild Post Swallow Residuals in Pyriforms: None - Impression/Summary Tracheal Aspiration: yes - penetration and subsequent aspiration seen with small cup sip of thin liquid Patient Presents With: Pharyngeal stage dysph. - moderate Risk of Aspiration: Moderate - Recommendations Solid Diet Recommendations: Mechanical Soft, Chopped Meat Liquid Diet Recommendations: [place]-Thick Strict Aspitarion Precautions: Yes Dysphagia Therapy with CLINICAL NURSING INSTRUCTOR: Yes - recommend dysphagia therapy at SNF to address timing of the swallow for reduced aspiration risk Recommended Techniques: Small Bites and Sips Supervision: requires assistance Other Recommendations: Recommend continuing nectar thick liqids due to delay in swallow reflex, resulting in thin liquids spilling into airway prior to swallow initiation. With nectar thick liquids, the delay in swallow did not result in aspiration. Recommend upgrading solids to mechanical soft with cut meats, no significant pharyngeal residue seen with solid trials. - Time Total Time: 30 Total Timed Minutes: 30
[2019-04-19] MEDS: MEMANTINE HCL 10 MG TABLET PO SCH (21:15)
[2019-04-19] MEDS: MELATONIN 3 MG TABLET PO SCH (21:15)
[2019-04-19] MEDS: DONEPEZIL HCL 5 MG TABLET PO SCH (21:15)
[2019-04-19] MEDS: ATORVASTATIN CALCIUM 80 MG TABLET PO SCH (21:16)
[2019-04-19] MEDS: AMLODIPINE BESYLATE 10 MG TABLET PO SCH (21:16)
[2019-04-20] MEDS: AMOXICILLIN TR/POT CLAVULANATE 500-125 MG TAB PO SCH ×3 (05:21→22:35)
[2019-04-20] MEDS: HEPARIN SOD (PORCINE) 5,000 UNIT/ML 1 ML VIAL SUBCUT SCH ×3 (05:21→22:36)
[2019-04-20] MEDS: IPRATROPIUM/ALBUTEROL 0.5-2.5 MG/3 ML AMPUL NEB SCH ×3 (07:54→20:07)
[2019-04-20] MEDS: INSULIN LISPRO 100 UNIT/ML 3 ML VIAL SUBCUT SCH ×4 (09:08→22:37)
[2019-04-20] MEDS: TAMSULOSIN HCL 0.4 MG CAP.SR.24H PO SCH (09:54)
[2019-04-20] MEDS: OXCARBAZEPINE 150 MG TABLET PO SCH ×2 (09:54→22:37)
[2019-04-20] MEDS: METOPROLOL TARTRATE 50 MG TABLET PO SCH (09:54)
[2019-04-20] MEDS: HYDRALAZINE HCL 50 MG TABLET PO SCH ×2 (09:55→22:35)
[2019-04-20] MEDS: LOSARTAN POTASSIUM 50 MG TABLET PO SCH (09:55)
[2019-04-20] MEDS: PANTOPRAZOLE SODIUM 20 MG TABLET.DR PO SCH (09:55)
[2019-04-20] MEDS: ASPIRIN 81 MG TABLET, CHEWABLE PO SCH (09:55)
--- NOTE | 2019-04-20 13:03 | PDOC PROGRESS REPORT ---
Subjective Progress Note for:: 04/20/19 Subjective:: The patient is resting in bed. He has congested breath sounds. He does not appear to be in any acute distress. Reason For Visit: HYPOTENSION, ARF, DEHYDRATION, ASPIRATION Physical Exam Vital Signs: Temp Pulse Resp BP Pulse Ox 98.5 F 60 18 146/50 H 96 04/19/19 23:20 04/20/19 07:54 04/20/19 07:54 04/19/19 23:20 04/20/19 07:54 Intake & Output 04/19/19 04/20/19 04/21/19 06:59 06:59 06:59 Intake Total 1918 2069 Output Total 325 3250 Balance 1593 -1181 Weight 105.2 kg 104.3 kg General appearance: PRESENT: no acute distress, cooperative, well-developed Head exam: PRESENT: atraumatic, normocephalic Eye exam: PRESENT: conjunctiva pink, scleral icterus Ear exam: PRESENT: normal external ear exam. ABSENT: bleeding, drainage Mouth exam: PRESENT: moist, tongue midline Neck exam: ABSENT: carotid bruit, JVD, lymphadenopathy Respiratory exam: PRESENT: prolonged expiratory phas, rhonchi - Possible on the left., symmetrical, unlabored, other - Coarse breath sounds. ABSENT: accessory muscle use, rales, tachypnea, wheezes Cardiovascular exam: PRESENT: RRR, +S1, +S2, systolic murmur - Faint 1/6 GI/Abdominal exam: PRESENT: normal bowel sounds, soft. ABSENT: distended, guarding, mass, tenderness Rectal exam: PRESENT: deferred Gentrourinary exam: ABSENT: indwelling catheter Neurological exam: PRESENT: alert, awake, oriented to person, oriented to place, oriented to situation Psychiatric exam: PRESENT: flat affect. ABSENT: agitated, anxious, unusual affect Focused psych exam: ABSENT: delusional, paranoid, restlessness Skin exam: PRESENT: dry, warm. ABSENT: rash Results Laboratory Results: 04/18/19 05:20 04/19/19 04:55 04/18/19 16:12 Blood Blood Culture (PCR) - Final Staphylococcus Species 04/16/19 11:00 Blood Blood Culture (PCR) - Final Staphylococcus Species 04/16/19 11:09 Stool - Stool - Final 04/16/19 11:09 Stool - Stool Stool Culture - Final NO SALMONELLA, SHIGELLA, CAMPYLOBACTER, OR E.COLI 0157 RECOVERED. NEGATIVE FOR SHIGA TOXINS 1&2. 04/16/19 04/16/19 11:00 11:00 Creatine Kinase 39 L CK-MB (CK-2) 1.76 Troponin I 0.017 Impressions: KUB X-Ray 04/16/19 11:25 IMPRESSION: NO RADIOGRAPHIC EVIDENCE FOR ACUTE ABDOMINAL DISEASE. Chest X-Ray 04/16/19 12:48 IMPRESSION: Stable large cardiac silhouette and central vascular congestion without overt edema. Modified Barium Swallow 04/19/19 00:00 IMPRESSION: LARYNGEAL PENETRATION AND ASPIRATION OF THIN LIQUIDS. PLEASE SEE SPEECH PATHOLOGIST REPORT FOR OTHER FINDINGS AND RECOMMENDATIONS. Assessment and Plan - Diagnosis (1) Hypertension Qualifiers: Hypertension type: essential hypertension Qualified Code(s): I10 - Essential (primary) hypertension Is this a current diagnosis for this admission?: Yes (2) ARF (acute renal failure) Qualifiers: Acute renal failure type: unspecified Qualified Code(s): N17.9 - Acute kidney failure, unspecified Is this a current diagnosis for this admission?: Yes (3) Coag negative Staphylococcus bacteremia Is this a current diagnosis for this admission?: Yes (4) Aspiration into airway Qualifiers: Encounter type: initial encounter Qualified Code(s): T17.908A - Unspecified foreign body in respiratory tract, part unspecified causing other injury, initial encounter Is this a current diagnosis for this admission?: Yes (5) DM type 2 (diabetes mellitus, type 2) Qualifiers: Diabetes mellitus manager long term care insulin use: without manager long term care use Is this a current diagnosis for this admission?: Yes (6) Dementia Qualifiers: Dementia type: unspecified type Dementia behavioral disturbance: with behavioral disturbance Qualified Code(s): F03.91 - Unspecified dementia with behavioral disturbance Is this a current diagnosis for this admission?: Yes (7) Obesity (BMI 30.0-34.9) Is this a current diagnosis for this admission?: Yes (8) Hypotension Qualifiers: Hypotension type: hypotension due to hypovolemia Qualified Code(s): I95.89 - Other hypotension; E86.1 - Hypovolemia Is this a current diagnosis for this admission?: Yes (9) Urinary retention Is this a current diagnosis for this admission?: Yes Plan: The patient's Chen catheter was removed on Friday. He developed urinary retention. I have increased his Flomax to 0.8 mg/day. We will remove the Chen catheter once again prior to returning to the [facility] facility. If he develops acute urinary retention then he will need to follow-up with urology and possibly and finasteride. - Plan Summary Summary: 04/20/2019 The patient's hypertension is reasonably controlled. The hypovolemic shock with hypotension found on admission is resolved. We will continue his current antihypertensive regimen. Diabetes mellitus type 2-continue current regimen. Accu-Cheks are slightly higher than desired. We will adjust medications based on sliding scale req uirements. Acute renal failure likely due to hypovolemia has resolved The patient had another modified barium swallow. He is still aspirating thin liquids. Speech therapy feels that he is safe with nectar thick liquids as well as mechanical soft diet with chopped meats which is an upgrade from ground meats. The patient will need to continue working with speech therapy upon return to the [facility] facility. Dementia-continue current medications The patient has had several positive blood cultures for different types of coagulase-negative staph. Patient does have a central line and we will discontinue this and send the tip for culture. He will remain on Augmentin. Urinary retention-I will increase the patient's Flomax to 0.8 mg and attempt to discontinue the Chen catheter once again. If urinary retention returns then he will need Chen catheter until follow-up with urology. - Time Time Spent with patient: 15-24 minutes Medications reviewed and adjusted accordingly: Yes Anticipated discharge: SNF
[2019-04-20] MEDS: MELATONIN 3 MG TABLET PO SCH (22:35)
[2019-04-20] MEDS: MEMANTINE HCL 10 MG TABLET PO SCH (22:35)
[2019-04-20] MEDS: DONEPEZIL HCL 5 MG TABLET PO SCH (22:35)
[2019-04-20] MEDS: ATORVASTATIN CALCIUM 80 MG TABLET PO SCH (22:35)
[2019-04-20] MEDS: AMLODIPINE BESYLATE 10 MG TABLET PO SCH (22:35)
[2019-04-21] MEDS: HEPARIN SOD (PORCINE) 5,000 UNIT/ML 1 ML VIAL SUBCUT SCH (05:24)
[2019-04-21] MEDS: AMOXICILLIN TR/POT CLAVULANATE 500-125 MG TAB PO SCH (05:27)
[2019-04-21 05:31] LABS: HEMATOCRIT 30.7 % (37.9-51.0); HEMOGLOBIN 10.7 g/dL (13.5-17.0); MEAN CORPUSCULAR HEMOGLOBIN 30.8 pg (27.0-33.4); MEAN CORPUSCULAR VOLUME 88 fl (80-97); PLATELET COUNT 208 10^3/uL (150-450); RED BLOOD COUNT 3.49 10^6/uL (4.35-5.55); RED CELL DISTRIBUTION WIDTH 15.8 % (11.5-14.0); WHITE BLOOD COUNT 7.4 10^3/uL (4.0-10.5)
[2019-04-21 05:49] LABS: ANION GAP 8 (5-19); BLOOD UREA NITROGEN 17 mg/dL (7-20); CALCIUM 8.6 mg/dL (8.4-10.2); CARBON DIOXIDE 34 mmol/L (22-30); CHLORIDE 95 mmol/L (98-107); GLUCOSE 138 mg/dL (75-110); POTASSIUM 3.4 mmol/L (3.6-5.0)
[2019-04-21] MEDS ORDERED: TAMSULOSIN HCL 0.4 MG CAP.SR.24H PO ONE (06:00)
[2019-04-21] MEDS: MAGNESIUM SULFATE/D5W 1 GM/100 ML RTUPB IV SCH ×3 (06:18→11:41)
[2019-04-21] MEDS: IPRATROPIUM/ALBUTEROL 0.5-2.5 MG/3 ML AMPUL NEB SCH ×2 (08:49→13:57)
[2019-04-21] MEDS: INSULIN LISPRO 100 UNIT/ML 3 ML VIAL SUBCUT SCH ×2 (09:05→12:09)
[2019-04-21] MEDS: METOPROLOL TARTRATE 50 MG TABLET PO SCH (09:32)
[2019-04-21] MEDS: HYDRALAZINE HCL 50 MG TABLET PO SCH (09:32)
[2019-04-21] MEDS: OXCARBAZEPINE 150 MG TABLET PO SCH (09:34)
[2019-04-21] MEDS: PANTOPRAZOLE SODIUM 20 MG TABLET.DR PO SCH (09:34)
[2019-04-21] MEDS: ASPIRIN 81 MG TABLET, CHEWABLE PO SCH (09:34)
[2019-04-21] MEDS: LOSARTAN POTASSIUM 50 MG TABLET PO SCH (09:35)
[2019-04-21] MEDS ORDERED: MAGNESIUM OXIDE 400 MG TABLET PO SCH (10:00)
[2019-04-21] MEDS ORDERED: TAMSULOSIN HCL 0.4 MG CAP.SR.24H PO SCH (10:00)
[2019-04-21] MEDS ORDERED: MAGNESIUM SULFATE/D5W 1 GM/100 ML RTUPB IV ONE (11:36)
--- NOTE | 2019-04-21 12:15 | PDOC TRANSFER SUMMARY ---
Impression - Admit/DC Date/PCP Admission Date/Primary Care Provider: 04/16/19 13:25 Discharge Date: 04/21/19 - Discharge Diagnosis (1) Hypertension Is this a current diagnosis for this admission?: Yes (2) ARF (acute renal failure) Is this a current diagnosis for this admission?: Yes (3) Coag negative Staphylococcus bacteremia Is this a current diagnosis for this admission?: Yes (4) Aspiration into airway Is this a current diagnosis for this admission?: Yes (5) DM type 2 (diabetes mellitus, type 2) Is this a current diagnosis for this admission?: Yes (6) Dementia Is this a current diagnosis for this admission?: Yes (7) Obesity (BMI 30.0-34.9) Is this a current diagnosis for this admission?: Yes (8) Hypotension Is this a current diagnosis for this admission?: Yes (9) Urinary retention Is this a current diagnosis for this admission?: Yes - Assessment Summary: 04/20/2019 The patient's hypertension is reasonably controlled. The hypovolemic shock with hypotension found on admission is resolved. We will continue his current antihypertensive regimen. Diabetes mellitus type 2-continue current regimen. Accu-Cheks are slightly higher than desired. We will adjust medications based on sliding scale requirements. Acute renal failure likely due to hypovolemia has resolved The patient had another modified barium swallow. He is still aspirating thin liquids. Speech therapy feels that he is safe with nectar thick liquids as well as mechanical soft diet with chopped meats which is an upgrade from ground meats. The patient will need to continue working with speech therapy upon return to the longterm facility. Dementia-continue current medications The patient has had several positive blood cultures for different types of coagulase-negative staph. Patient does have a central line and we will discontinue this and send the tip for culture. He will remain on Augmentin. Urinary retention-I will increase the patient's Flomax to 0.8 mg and attempt to discontinue the Chen catheter once again. If urinary retention returns then he will need Chen catheter until follow-up with urology. - Additional Information Resuscitation Status: Full Code Discharge Diet: Cardiac Discharge Activity: Activity As Tolerated, Slowly Increase Activity Referrals: BHUPENDRA BYERS MD [NO LOCAL MD] - Follow up as needed Home Medications: Aspirin 81 mg PO DAILY 09/26/15 Clonazepam [Klonopin] 0.5 mg PO QHS 09/26/15 Omeprazole 20 mg PO DAILY 09/26/15 Oxcarbazepine [Trileptal] 600 mg PO Q12 09/26/15 Solifenacin Succinate [Vesicare] 5 mg PO HSP PRN 09/26/15 Hydralazine HCl [Apresoline 50 mg Tablet] 50 mg PO Q12 01/17/16 Cyclobenzaprine HCl [Flexeril 5 mg Tablet] 5 mg PO DAILYP PRN 09/18/18 Linagliptin [Tradjenta] 5 mg PO DAILY 09/18/18 Memantine HCl/Donepezil HCl [Namzaric 28 mg-10 mg Capsule] 1 cap PO QHS 09/18/18 Metoprolol Tartrate [Lopressor 50 mg Tablet] 50 mg PO DAILY 09/18/18 Atorvastatin Calcium [Lipitor 80 mg Tablet] 80 mg PO QHS #30 tablet 09/23/18 Tamsulosin HCl [Flomax 0.4 mg Cap.sr] 0.4 mg PO DAILY #7 cap.sr.24h 09/23/18 Amlodipine Besylate [Norvasc 10 mg Tablet] 10 mg PO DAILY 04/16/19 Dextromethorphan HBr/Quinidine [Nuedexta 20-10 mg Capsule] 1 each PO BID 04/16/19 Ipratropium/Albuterol Sulfate [Duoneb 3 ml Ampul] 3 ml NEB TID 04/16/19 Loperamide HCl [Imodium 2 mg Capsule] 2 mg PO Q6HP PRN 04/16/19 Losartan Potassium [Cozaar 50 mg Tablet] 50 mg PO DAILY 04/16/19 Melatonin [Melatonin 3 mg Tablet] 3 mg PO QHS 04/16/19 Vits A,C,E/Lutein/Minerals [Ocuvite with Lutein Tablet] 1 each PO QAM 04/16/19 Acetaminophen [Tylenol 325 mg Tablet] 650 mg PO Q4HP PRN tablet 04/21/19 Amlodipine Besylate [Norvasc 10 mg Tablet] 10 mg PO QHS tablet 04/21/19 Amox Tr/Potassium Clavulanate [Augmentin "500" Tablet] 1 tab PO Q8 7 Days #21 tablet 04/21/19 Magnesium Oxide [Mag-Ox 400 mg Tablet] 400 mg PO BID tablet 04/21/19 History of Present Illiness History of Present Illness: ROMERO KELLEY is a 73 year old male who presented to the emergency department with hypotension and possible septic shock. He has a history of stroke with dysphagia. He presented with an elevated white blood cell count and acute renal failure. He was on pressor therapy and given antibiotics and admitted to the intensive care unit. Hospital Course Hospital Course: The initial part of his hospitalization was in the intensive care unit. He did receive pressor therapy as well as antibiotics. He received fluids for his hypotension and acute kidney injury. He improved significantly as it was weaned off of the pressors and able to transfer to [facility]. Once his hypotension resolved he began to have his underlying hypertension. He is back on his antihypertensive regimen. It was also noted that he had coagulase-negative staph and multiple blood cultures. It is a very sensitive staph and he will complete antibiotic therapy with oral Augmentin. He is still on a modified diet which has been advanced to mechanical soft with cut meats and nectar thick liquids based on speech therapy's recommendation. He did have hypomagnesemia and is now on supplemental magnesium. He is currently stable. His Chen catheter has been removed and he did urinate. Will be transferred back to [place] to complete antibiotic therapy as well as additional physical therapy and speech therapy. Physical Exam Vital Signs: Temp Pulse Resp BP Pulse Ox 98.0 F 73 15 107/74 95 04/21/19 03:35 04/21/19 08:50 04/21/19 08:50 04/21/19 03:35 04/21/19 08:50 Intake & Output 04/20/19 04/21/19 04/22/19 06:59 06:59 06:59 Intake Total 2069 1102 200 Output Total 3250 1975 Balance -1181 -873 200 Weight 104.3 kg 102.1 kg General appearance: PRESENT: no acute distress Head exam: PRESENT: atraumatic, normocephalic Respiratory exam: PRESENT: clear to auscultation german, symmetrical, unlabored. ABSENT: rales, rhonchi, tachypnea, wheezes Cardiovascular exam: PRESENT: RRR, +S1, +S2 GI/Abdominal exam: PRESENT: normal bowel sounds, soft. ABSENT: guarding, tenderness Rectal exam: PRESENT: deferred Gentrourinary exam: ABSENT: indwelling catheter Neurological exam: PRESENT: alert, awake, oriented to person, oriented to place, oriented to situation, CN II-XII grossly intact Psychiatric exam: PRESENT: appropriate affect. ABSENT: agitated, anxious Focused psych exam: ABSENT: delusional, restlessness Results Laboratory Results: WBC 7.4 10^3/uL (4.0-10.5) 04/21/19 05:10 RBC 3.49 10^6/uL (4.35-5.55) L 04/21/19 05:10 Hgb 10.7 g/dL (13.5-17.0) L 04/21/19 05:10 Hct 30.7 % (37.9-51.0) L 04/21/19 05:10 MCV 88 fl (80-97) 04/21/19 05:10 MCH 30.8 pg (27.0-33.4) 04/21/19 05:10 MCHC 35.0 g/dL (32.0-36.0) 04/21/19 05:10 RDW 15.8 % (11.5-14.0) H 04/21/19 05:10 Plt Count 208 10^3/uL (150-450) 04/21/19 05:10 Lymph % (Auto) 14.9 % (13-45) 04/18/19 05:20 [place] % (Auto) 11.0 % (3-13) 04/18/19 05:20 Eos % (Auto) 0.0 % (0-6) 04/18/19 05:20 Baso % (Auto) 0.2 % (0-2) 04/18/19 05:20 Absolute Neuts (auto) 4.6 10^3/uL (1.7-8.2) 04/18/19 05:20 Absolute Lymphs (auto) 0.9 10^3/uL (0.5-4.7) 04/18/19 05:20 Absolute Monos (auto) 0.7 10^3/uL (0.1-1.4) 04/18/19 05:20 Absolute Eos (auto) 0.0 10^3/uL (0.0-0.6) 04/18/19 05:20 Absolute Basos (auto) 0.0 10^3/uL (0.0-0.2) 04/18/19 05:20 Seg Neutrophils % 73.9 % (42-78) 04/18/19 05:20 Carbonic Acid 1.38 mmol/L (1.05-1.35) H 04/16/19 12:45 HCO3/H2CO3 Ratio 15:1 04/16/19 12:45 ABG pH 7.28 (7.35-7.45) L 04/16/19 12:45 ABG pCO2 46.0 mmHg (35-45) H 04/16/19 12:45 ABG pO2 86.5 mmHg (80-100) 04/16/19 12:45 ABG HCO3 20.9 mmol/L (20-24) 04/16/19 12:45 ABG Total CO2 22.3 mmol/L (23-27) L 04/16/19 12:45 ABG O2 Saturation 95.4 % (94-98) 04/16/19 12:45 ABG Base Excess -5.8 mmol/L 04/16/19 12:45 FiO2 2L 04/16/19 12:45 Sodium 137.0 mmol/L (137-145) 04/21/19 05:10 Potassium 3.4 mmol/L (3.6-5.0) L 04/21/19 05:10 Chloride 95 mmol/L (98-107) L 04/21/19 05:10 Carbon Dioxide 34 mmol/L (22-30) H 04/21/19 05:10 Anion Gap 8 (5-19) 04/21/19 05:10 BUN 17 mg/dL (7-20) 04/21/19 05:10 Creatinine 0.61 mg/dL (0.52-1.25) 04/21/19 05:10 Est GFR ( Amer) > 60 (>60) 04/21/19 05:10 Est GFR (MDRD) Non-Af > 60 (>60) 04/21/19 05:10 Glucose 138 mg/dL (75-110) H 04/21/19 05:10 POC Glucose 156 mg/dL (70-110) H 04/21/19 07:55 Lactic Acid 1.9 mmol/L (0.7-2.1) 04/16/19 10:49 Calcium 8.6 mg/dL (8.4-10.2) 04/21/19 05:10 Magnesium 0.9 mg/dL (1.6-2.3) L* 04/21/19 05:10 Total Bilirubin 0.3 mg/dL (0.2-1.3) 04/17/19 06:15 Direct Bilirubin 0.0 mg/dL (0.0-0.4) 04/17/19 06:15 Neonat Total Bilirubin Not Reportable 04/17/19 06:15 Neonat Direct Bilirubin Not Reportable 04/17/19 06:15 Neonat Indirect Bili Not Reportable 04/17/19 06:15 AST 18 U/L (17-59) 04/17/19 06:15 ALT 13 U/L (<50) 04/17/19 06:15 Alkaline Phosphatase 60 U/L (38-126) 04/17/19 06:15 Creatine Kinase 39 U/L (55-170) L 04/16/19 11:00 CK-MB (CK-2) 1.76 ng/mL (<4.55) 04/16/19 11:00 Troponin I 0.017 ng/mL 04/16/19 11:00 Total Protein 5.8 g/dL (6.3-8.2) L 04/17/19 06:15 Albumin 3.2 g/dL (3.5-5.0) L 04/17/19 06:15 Urine Color YELLOW 04/16/19 11:55 Urine Appearance SLIGHTLY-CLOUDY 04/16/19 11:55 Urine pH 7.0 (5.0-9.0) 04/16/19 11:55 Ur Specific [place] 1.011 04/16/19 11:55 Urine Protein 30 mg/dL (NEGATIVE) H 04/16/19 11:55 Urine Glucose (UA) NEGATIVE mg/dL (NEGATIVE) 04/16/19 11:55 Urine Ketones NEGATIVE mg/dL (NEGATIVE) 04/16/19 11:55 Urine Blood SMALL (NEGATIVE) H 04/16/19 11:55 Urine Nitrite NEGATIVE (NEGATIVE) 04/16/19 11:55 Urine Bilirubin NEGATIVE (NEGATIVE) 04/16/19 11:55 Urine Urobilinogen NEGATIVE mg/dL (<2.0) 04/16/19 11:55 Ur Leukocyte Esterase MODERATE (NEGATIVE) H 04/16/19 11:55 Urine WBC (Auto) 118 /HPF 04/16/19 11:55 Urine RBC (Auto) 67 /HPF 04/16/19 11:55 Urine Bacteria (Auto) TRACE /HPF 04/16/19 11:55 Amorphous Sediment Auto TRACE /HPF 04/16/19 11:55 Urine Mucus (Auto) RARE /LPF 04/16/19 11:55 Urine Ascorbic Acid 40 (NEGATIVE) H 04/16/19 11:55 Stool for White Cells NO WBCs SEEN 04/17/19 16:45 Stl C. Difficile GDH Ag NEGATIVE (NEGATIVE) 04/16/19 11:09 Stl C.difficile Tox A&B NEGATIVE (NEGATIVE) 04/16/19 11:09 04/16/19 11:00 CK-MB (CK-2) 1.76 Troponin I 0.017 Impressions: Chest X-Ray 04/16/19 00:00 IMPRESSION: New right internal jugular central venous catheter with tip at right atrium. No pneumothorax. Stable enlarged cardiac silhouette and central vascular congestion. Chest X-Ray 04/16/19 10:52 IMPRESSION: Stable enlarged cardiac silhouette and central vascular congestion. KUB X-Ray 04/16/19 11:25 IMPRESSION: NO RADIOGRAPHIC EVIDENCE FOR ACUTE ABDOMINAL DISEASE. Chest X-Ray 04/16/19 12:48 IMPRESSION: Stable large cardiac silhouette and central vascular congestion without overt edema. Modified Barium Swallow 04/19/19 00:00 IMPRESSION: LARYNGEAL PENETRATION AND ASPIRATION OF THIN LIQUIDS. PLEASE SEE SPEECH PATHOLOGIST REPORT FOR OTHER FINDINGS AND RECOMMENDATIONS. Plan Health Concerns: Bacteremia currently being treated with Augmentin Plan of Treatment: Complete antibiotic therapy. Continue antihypertensive medication. Monitor electrolytes and supplement accordingly. Goals: Resolution of coagulase-negative staph bacteremia Time Spent: Greater than 30 Minutes Stroke Is this a Stroke Patient?: No Acute Heart Failure - Is this a Heart Failure Patient?: No
[2019-04-21 14:46] VITALS: BP 131/75
== END 2019-04-21 15:20 | DRG 314 ==
LOC: ER 10:36 → EH 13:25 → ICU 16:26 → 3N 04-18 15:37
PROVIDERS: ADMIT Anesthesiology; ATTEND Anesthesiology
PROC: 02H633Z Insertion of Infusion Device into Right Atrium, Percutaneous Approach (ICD-10-PCS; principal; 2019-04-16)
DX: I95.89 Other hypotension (principal); R57.1 Hypovolemic shock; N17.9 Acute kidney failure, unspecified; I69.354 Hemiplegia and hemiparesis following cerebral infarction affecting left non-dominant side; R78.81 Bacteremia; I69.392 Facial weakness following cerebral infarction; I69.322 Dysarthria following cerebral infarction; R33.9 Retention of urine, unspecified; E83.42 Hypomagnesemia; E11.9 Type 2 diabetes mellitus without complications; B95.7 Other staphylococcus as the cause of diseases classified elsewhere; I10 Essential (primary) hypertension; I25.10 Atherosclerotic heart disease of native coronary artery without angina pectoris; J44.9 Chronic obstructive pulmonary disease, unspecified; F03.90 Unspecified dementia, unspecified severity, without behavioral disturbance, psychotic disturbance, mood disturbance, and anxiety; E66.9 Obesity, unspecified; Z68.30 Body mass index [BMI] 30.0-30.9, adult; Z79.899 Other long term (current) drug therapy; Z79.82 Long term (current) use of aspirin
CPT/HCPCS: 36415; 36556; 71045; 74018; 74230; 80048; 80053; 81001; 82550; 82553; 82803; 82962; 83605; 83735; 84484; 85025; 85027; 87040; 87045; 87070; 87077; 87086; 87150; 87186; 87205; 87324; 87449; 89055; 93005; 93010; 94640; 96361; 96365; 96375; 99232; 99291; 99292; J0360; J1200; J1265; J1642; J1644; J1720; J1815; J2020; J2543; J3370; J3475; J3490; J7030; J7120; J7620